=== PATIENT | female | born 1965 | race Caucasian/White ===

== ENCOUNTER 2019-05-23 15:22 | Emergency (ER) | payer MEDICARE, MEDICAID, SELFPAY ==
[2019-05-23 15:35] VITALS: BP 137/82; PULSE 77; RESP 20; TEMP 37.1; O2SAT 96
--- NOTE | 2019-05-23 16:08 | WC.ED.TRAUMA ---
HPI - Trauma General Chief Complaint: Unspecified Stated Complaint: pain in rib cage History of Present Illness HPI narrative: Radha is a 53-year-old who was laying supine playing with her grandchild 6 days ago. She abruptly experienced a explosive burning sharp pain rated 8/10 in the right anterior chest. This resolved after a couple of minutes. Four days ago she developed pain in this same area which has remained constant. It's rated 5/10 at rest but made worse by coughing and walking. Palpation to this sight produces the pain. This pain sometimes radiates around the right side into her back. She is worried this could be her heart. She would lilke to have some pain medication to take when the pain gets intense. Tylenol does not work; cannot take nonsteroidal anti-inflammatories. She denies shortness of breath. She has a chronic cough which has not recently changed Related Data Home Medications Medication Instructions Recorded Confirmed atorvastatin 40 mg tablet 40 mg PO DAILY 05/08/19 05/23/19 gabapentin 300 mg capsule 600 mg PO HS 05/08/19 05/23/19 losartan 50 mg-hydrochlorothiazide 1 tablet PO DAILY 05/08/19 05/23/19 12.5 mg tablet omeprazole 40 mg capsule,delayed 40 mg PO DAILY 05/08/19 05/23/19 release gabapentin 100 mg PO BID 05/23/19 05/23/19 lorazepam 1 mg PO Q8-10H PRN 05/23/19 05/23/19 potassium chloride 40 meq PO BID 05/23/19 05/23/19 warfarin 8 mg PO DAILY 05/23/19 05/23/19 Allergies Allergy/AdvReac Type Severity Reaction Status Date / Time No Known Allergies Allergy Unverified 05/11/19 08:13 Review of Systems Constitutional: Constitutional: Reports no additional constitutional complaints Cardiovascular: Cardiovascular: Denies chest pain, Denies rapid heart rate and Denies radiating jaw, neck or arm pain Respiratory: Respiratory: Reports no additional respiratory complaints Gastrointestinal: Gastrointestinal: Denies abdominal pain, Reports diarrhea and Reports vomiting Musculoskeletal: Musculoskeletal: Reports no additional musculoskeletal complaints Integumentary/Breasts: Skin/Breast: Denies rash Psychiatric: Psychiatric: Reports anxiety PMFSH Past Medical History Medical History (Updated 05/23/19 @ 16:36 by Clayton Barraza MD) Common migraine DELMER (generalized anxiety disorder) GERD without esophagitis Herpes simplex virus (HSV) infection History of pulmonary embolism Hyperlipidemia Hypertension Nicotine dependence Obesity, Class II, BMI 35-39.9 Surgical History Surgical History (Updated 05/08/19 @ 12:30 by Milly Cr NP) History of cholecystectomy History of hysterectomy Family History Family History (Updated 05/02/17 @ 00:00 by CONVUSER A) Mother Family history of type 2 diabetes mellitus Father Hypertension Social History Social History (Updated 05/23/19 @ 19:46 by Clayton Barraza MD) Smoking status: Current every day smoker Gender identity (if verbalized by the patient): Female Exam Const: General: other ( Anxious) Nutritional Appearance: overweight Orientation/consciousness: patient oriented x3 Chest: Other: examination of the right anterior chest reveals no erythema, swelling, rash. She is tender along the right, approximate 6th rib, extending from the right mid clavicular line to the anterior axillary line. Palpation reproduces her pain. No palpable crepitation. Underlying breath sounds are full and clear without rales or rub. Resp: Auscultation: clear to auscultation bilaterally Cardio: Rhythm: regular rhythm Heart sounds: S1 normal heart sound present, S2 normal heart sound present and no murmurs GI: GI Palp: Yes Soft to palpation and No Tenderness to palpation present (GI) Course Course Emergency Course: Pt assured this is not cardiac. No X rays indicated unless pain does not resolve. I explained it should be better in a week and slowly resolve over the next 3 weeks or so. Vital Signs Vital signs: Vital Signs
[2019-05-23 16:23] VITALS: RESP 20
--- NOTE | 2019-05-23 16:33 | ED.UPPEXIN ---
HPI - Extremity Injury (Upper) General Chief Complaint: Unspecified Stated Complaint: pain in rib cage Related Data Home Medications Medication Instructions Recorded Confirmed atorvastatin 40 mg tablet 40 mg PO DAILY 05/08/19 05/23/19 gabapentin 300 mg capsule 600 mg PO HS 05/08/19 05/23/19 losartan 50 mg-hydrochlorothiazide 1 tablet PO DAILY 05/08/19 05/23/19 12.5 mg tablet omeprazole 40 mg capsule,delayed 40 mg PO DAILY 05/08/19 05/23/19 release gabapentin 100 mg PO BID 05/23/19 05/23/19 lorazepam 1 mg PO Q8-10H PRN 05/23/19 05/23/19 potassium chloride 40 meq PO BID 05/23/19 05/23/19 warfarin 8 mg PO DAILY 05/23/19 05/23/19 Allergies Allergy/AdvReac Type Severity Reaction Status Date / Time No Known Allergies Allergy Unverified 05/11/19 08:13 [facility] Past Medical History Medical History (Updated 05/23/19 @ 16:36 by Clayton Barraza MD) Common migraine DELMER (generalized anxiety disorder) GERD without esophagitis Herpes simplex virus (HSV) infection History of pulmonary embolism Hyperlipidemia Hypertension Nicotine dependence Obesity, Class II, BMI 35-39.9 Surgical History Surgical History (Updated 05/08/19 @ 12:30 by Milly Cr NP) History of cholecystectomy History of hysterectomy Family History Family History (Updated 05/02/17 @ 00:00 by CONVUSER A) Mother Family history of type 2 diabetes mellitus Father Hypertension Social History Social History Gender identity (if verbalized by the patient): Female Course Vital Signs Vital signs: Vital Signs Temperature 37.1 C 05/23/19 15:35 Pulse Rate 77 05/23/19 15:35 Respiratory Rate 05/23/19 15:35 Blood Pressure 137/82 05/23/19 15:35 Pulse Oximetry 96 05/23/19 15:35 Temperature 37.1 C 05/23/19 15:35 Pulse Rate 77 05/23/19 15:35 Respiratory Rate 05/23/19 15:35 Blood Pressure 137/82 05/23/19 15:35 Pulse Oximetry 96 05/23/19 15:35 Discharge Plan Discharge Clinical Impression: Overuse injury Patient Disposition: Home, Self-Care Condition: Stable Instructions: Wrist Injury (ED) Additional Instructions: Return if worse. See Frank Mahmood within the next week. Wear wrist splint. Remove to apply ice 4x/day as needed for pain. Avoid lifting or using the left arm. Prescriptions: New hydrocodone-acetaminophen 5-325 mg tablet 1 tablet PO Q6H PRN (Reason: pain) Qty: 10 RF: 0 No Action gabapentin 100 mg Capsule 100 mg PO BID RF: 0 warfarin 4 mg tablet 8 mg PO DAILY RF: 0 lorazepam 1 mg tablet 1 mg PO Q8-10H PRN (Reason: anxiety) RF: 0 potassium chloride 20 mEq tablet extended release 40 meq PO BID RF: 0 omeprazole 40 mg capsule,delayed release(DR/EC) 40 mg PO DAILY RF: 0 gabapentin 300 mg capsule 600 mg PO HS RF: 0 atorvastatin 40 mg tablet 40 mg PO DAILY RF: 0 losartan-hydrochlorothiazide 50-12.5 mg tablet 1 tablet PO DAILY RF: 0 hydroxyzine pamoate 50 mg capsule 50 mg PO TID PRN (Reason: anxiety) Qty: 90 RF: 1 escitalopram oxalate 20 mg tablet 20 mg PO DAILY Qty: 30 RF: 3 ondansetron 4 mg tablet,disintegrating 4 mg PO Q8H PRN (Reason: nausea and vomiting) Qty: 20 RF: 0 Follow-up/Referrals: UNKNOWN,DOCTOR [Primary Care Provider] - Time of Disposition: 16:17 Discharge Date/Time: 05/23/19 16:23
== END 2019-05-23 16:23 | disposition home or self-care (01) ==
PROVIDERS: Emergency Provider Family Medicine
DX: S29.9XXA Unspecified injury of thorax, initial encounter (principal); Z86.711 Personal history of pulmonary embolism; Z79.01 Long term (current) use of anticoagulants; E78.5 Hyperlipidemia, unspecified; I10 Essential (primary) hypertension; F17.200 Nicotine dependence, unspecified, uncomplicated; X58.XXXA Exposure to other specified factors, initial encounter
CPT/HCPCS: 99283

== ENCOUNTER 2019-10-08 13:14 | Outpatient (CLI) | payer MEDICARE, MEDICAID, SELFPAY ==
--- NOTE | ~2019-10-08 | XR_ITS ---
XR thoracic spine 3V 10/08/2019 13:57 Indication: Back pain Procedure: 3 views of the thoracic spine Comparison: 05/16/2017 Findings: Vertebral body heights are maintained. No fracture or traumatic malalignment. No paraspinal soft tissue abnormality. Pedicles intact. Surrounding osseous structures within normal limits. Osteo penia. Impression: 1: No significant abnormality of the thoracic spine. Reviewed, dictated and finalized at location A. Impression: 1: No significant abnormality of the thoracic spine.
--- NOTE | ~2019-10-08 | XR_ITS ---
XR lumbar spine 2-3V 10/08/2019 13:57 Indication: Low back pain Procedure: 3 views lumbar spine Comparison: 05/16/2017 Findings: Vertebral body heights are maintained. No significant disc narrowing. No evidence for spond ylolysis or spondylolisthesis. No acute fracture is identified. Pedicles intact. Sacral foramen are s ymmetric. There are mild facet degenerative changes at L4-5 and L5-S1. Impression: 1: Mild lumbar spondylosis. Reviewed, dictated and finalized at location A. Impression: 1: Mild lumbar spondylosis.
== END 2019-10-08 13:15 | disposition home or self-care (01) ==
LOC: CHSIMG 13:18
PROVIDERS: PCP Nurse Practitioner Family; Visit Provider Nurse Practitioner Family
DX: M54.6 Pain in thoracic spine (principal); M54.5 Low back pain
CPT/HCPCS: 72072; 72100

== ENCOUNTER 2019-11-25 15:15 | Outpatient (CLI) | payer MEDICARE, SELFPAY ==
[2019-11-25 16:04] LABS: INR 1.9
[2019-11-25 16:21] LABS: Creatinine Urine 143.58 mg/dL (40-278); Hemoglobin A1C 6.1 % (<5.7); MALB Creatinine Ratio 5.2 mg/g (0-30); Microalbumin Urine Random 7.5 mg/L
[2019-11-25 17:02] LABS: Alanine Aminotransferase 24 U/L (14-59); Albumin Level 3.6 g/dL (3.4-5.0); Alkaline Phosphatase 118 U/L (46-116); Anion Gap 10 mmol/L (8-16); Aspartate Amino Transferase 20 U/L (15-37); Bilirubin,Total 0.3 mg/dL (0.00-1.00); Blood Urea Nitrogen 12 mg/dL (7-18); Calcium 9.2 mg/dL (8.5-10.1); Carbon Dioxide 30 mmol/L (21-32); Chloride 102 mmol/L (98-108); Cholesterol 133 mg/dL (0-200); Estimated Glomerular Filt Rate > 60; Folic Acid 4.8 ng/mL (8.6->20); Glucose 100 mg/dL (70-99); HDL Direct 46 mg/dL (40-60); LDL Cholesterol Calculated 55 mg/dL (<130); Osmolality Calculated 293 mOsm/kg (285-295); Potassium 3.4 mmol/L (3.5-5.1); Sodium 142 mmol/L (136-145); Total Protein 7.6 g/dL (6.4-8.2); Triglycerides 158 mg/dL (0-150); Vitamin B12 370 pg/mL (193-986)
[2019-11-25 17:05] LABS: Thyroid Stimulating Hormone Reflex 1.19 u/IU/mL (0.36-3.74)
== END 2019-11-25 15:16 | disposition home or self-care (01) ==
PROVIDERS: PCP Family Medicine; Visit Provider Family Medicine
DX: E11.9 Type 2 diabetes mellitus without complications (principal); I10 Essential (primary) hypertension; Z79.01 Long term (current) use of anticoagulants
CPT/HCPCS: 36415; 80053; 80061; 82043; 82607; 82746; 83036; 84443; 85610

== ENCOUNTER 2020-08-24 15:05 | Outpatient (CLI) | payer MEDICARE, SELFPAY ==
[2020-08-24 15:28] LABS: Hemoglobin A1C 5.9 % (<5.7)
[2020-08-24 16:01] LABS: Alanine Aminotransferase 26 U/L (14-59); Albumin Level 3.6 g/dL (3.4-5.0); Alkaline Phosphatase 128 U/L (46-116); Anion Gap 11 mmol/L (8-16); Aspartate Amino Transferase 17 U/L (15-37); Bilirubin,Total 0.3 mg/dL (0.00-1.00); Blood Urea Nitrogen 15 mg/dL (7-18); Calcium 9.1 mg/dL (8.5-10.1); Carbon Dioxide 27 mmol/L (21-32); Chloride 102 mmol/L (98-108); Estimated Glomerular Filt Rate > 60; Glucose 87 mg/dL (70-99); Osmolality Calculated 289 mOsm/kg (285-295); Potassium 3.8 mmol/L (3.5-5.1); Sodium 140 mmol/L (136-145); Total Protein 7.2 g/dL (6.4-8.2)
== END 2020-08-24 15:06 | disposition home or self-care (01) ==
LOC: CHSLAB 15:07
PROVIDERS: PCP Nurse Practitioner Family; Visit Provider Nurse Practitioner Family
DX: R73.03 Prediabetes (principal)
CPT/HCPCS: 36415; 80053; 83036

== ENCOUNTER 2021-04-25 16:22 | Outpatient (CLI) | payer OTHER, SELFPAY ==
--- NOTE | ~2021-04-25 | XR_ITS ---
XR knee LT 3V DATE: 04/25/2021 16:58 INDICATION: Aching/throbbing pain of left knee for 2 months TECHNIQUE: AP, lateral, sunrise views COMPARISON: None FINDINGS: There is slight periarticular spurring of the patella. There is minimal loss of medial comp artment joint space height. No fracture or dislocation or joint effusion, radiopaque intra-articular loose body or chondrocalcino sis. No periosteal reaction or bone destruction. IMPRESSION: Minimal loss of medial prominent joint space height and slight peritoneal spurring, consi stent with mild osteoarthritis Reviewed, dictated and finalized at location A. [employer] IMPRESSION: Minimal loss of medial prominent joint space height and slight loretta toneal spurring, consistent with mild osteoarthritis
--- NOTE | ~2021-04-25 | XR_ITS ---
XR knee RT 3V DATE: 04/25/2021 16:57 INDICATION: Medial right knee pain for 3 months. Limited movement. No injury. TECHNIQUE: AP, lateral, sunrise views COMPARISON: None FINDINGS: No fracture or dislocation or joint effusion. Minimal loss of height at the medial compartm ent joint space. Joint spaces otherwise are well preserved. No chondrocalcinosis or radiopaque intra- articular loose body. No periosteal reaction or bone destruction. IMPRESSION: Minimal loss of height of medial compartment joint space Reviewed, dictated and finalized at location A. 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
== END 2021-04-25 16:23 | disposition home or self-care (01) ==
LOC: CHSIMG 16:26
PROVIDERS: PCP Family Medicine; Visit Provider Family Medicine
DX: M25.562 Pain in left knee (principal); M25.561 Pain in right knee
CPT/HCPCS: 73562

== ENCOUNTER 2021-06-07 15:51 | Outpatient (NON) | payer MEDICARE, SELFPAY | END 2021-06-07 15:52 | disposition home or self-care (01) | LOC: CHSLAB 15:53 | PROVIDERS: Visit Provider Nurse Practitioner Family | DX: R30.0 Dysuria (principal) | CPT/HCPCS: 87077; 87086; 87088; 87186 ==

== ENCOUNTER 2021-12-07 14:34 | Outpatient (CLI) | payer MEDICARE, SELFPAY ==
[2021-12-07 14:48] LABS: Hematocrit 42.8 % (35.0-49.0); Hemoglobin 14.3 g/dL (12.0-15.0); Mean Corpuscular HGB Conc 33.4 g/dL (32.0-36.0); Mean Corpuscular Hemoglobin 30.8 pg (27.0-31.0); Mean Corpuscular Volume 92.2 fL (78.0-102.0); Platelet Count Result 268 K/mm3 (150-420); Red Blood Count 4.64 M/mm3 (4.20-5.40); Red Cell Distribution Width 13.7 % (11.6-14.4); White Blood Count 9.8 K/mm3 (4.8-10.8)
[2021-12-07 15:14] LABS: Alanine Aminotransferase 32 U/L (14-59); Albumin Level 3.6 g/dL (3.4-5.0); Alkaline Phosphatase 99 U/L (46-116); Anion Gap 10 mmol/L (8-16); Aspartate Amino Transferase 26 U/L (15-37); Bilirubin,Total 0.4 mg/dL (0.00-1.00); Blood Urea Nitrogen 10 mg/dL (7-18); Calcium 9.2 mg/dL (8.5-10.1); Carbon Dioxide 29 mmol/L (21-32); Chloride 100 mmol/L (98-108); Estimated Glomerular Filt Rate > 60; Glucose 105 mg/dL (70-99); Osmolality Calculated 287 mOsm/kg (285-295); Potassium 3.4 mmol/L (3.5-5.1); Sodium 139 mmol/L (136-145); Total Protein 7.5 g/dL (6.4-8.2)
== END 2021-12-07 14:35 | disposition home or self-care (01) ==
LOC: CHSLAB 14:36
PROVIDERS: PCP Family Medicine; Visit Provider Family Medicine
DX: Z01.818 Encounter for other preprocedural examination (principal)
CPT/HCPCS: 36415; 80053; 85027

== ENCOUNTER 2021-12-11 02:34 | Day surgery (SDC) | payer MEDICARE, MEDICAID, SELFPAY ==
[2021-12-06 13:37] VITALS: BMI 34.7
--- NOTE | 2021-12-11 10:50 | WPDANESEPPF ---
Anes - Initial Pre Proc Eval Procedure: Operation Date: 12/11/21 12:30 Proposed Procedures p Esophagogastroduodenoscopy & Colonoscopy - Damian Lynn MD Date/Time: 12/11/21 10:50 Surgeon: Damian Lynn MD Pre Op Diagnosis: diarrhea, gastritis Patient Data Age: 56 Gender: F Height: 1.75 m Weight: 106.5 kg Allergies Allergy/AdvReac Type Severity Reaction Status Date / Time No Known Allergies Allergy Verified 12/11/21 11:13 Home Medications Medication Instructions Recorded Confirmed Type lorazepam 1 mg tablet 1 mg PO Q8-10H PRN anxiety 05/23/19 12/06/21 History hydroxyzine pamoate 50 mg capsule 50 mg PO TID PRN anxiety #90 caps 07/02/19 12/06/21 Rx ondansetron HCl 4 mg tablet 4 mg PO Q8H PRN nausea and 09/03/19 12/06/21 Rx (Zofran) vomiting #90 tabs gabapentin 600 mg tablet See Rx Instructions .Route 09/05/20 12/06/21 Rx .COMPLEX #360 tabs cholestyramine-aspartame 4 gram 4 g PO DAILY #60 ea 03/21/21 12/06/21 Rx oral powder for susp in a packet (Cholestyramine Light) tizanidine 2 mg tablet See Rx Instructions .Route 05/01/21 12/06/21 Rx .COMPLEX #20 tabs omeprazole 40 mg capsule,delayed See Rx Instructions .Route 05/22/21 12/06/21 Rx release .COMPLEX #90 caps atorvastatin 40 mg tablet See Rx Instructions .Route 06/20/21 12/06/21 Rx .COMPLEX #90 tabs olanzapine 5 mg tablet 5 mg PO DAILY 07/17/21 12/06/21 History warfarin 7.5 mg tablet 7.5 mg PO DAILY #30 tabs 08/31/21 12/06/21 Rx losartan 50 mg-hydrochlorothiazide 1 tablet PO DAILY #90 tabs 09/08/21 12/06/21 Rx 12.5 mg tablet potassium chloride 20 mEq See Rx Instructions .Route 10/11/21 12/06/21 Rx tablet,extended release .COMPLEX #360 tabs sucralfate 1 gram tablet 1 g PO TID #270 tabs 10/26/21 12/06/21 Rx Equate Gas And Bloating 2 tab-cap PO QACDINNER PRN Diarrhea 12/06/21 12/06/21 History Lactase Enzyme 6 tab-cap PO QACDINNER PRN Diarrhea 12/06/21 12/06/21 History Tylenol 1,000 mg PO BID 12/06/21 12/06/21 History calcium citrate 600 mg PO BID 12/06/21 12/06/21 History melatonin 10 mg tablet 10 mg PO HS PRN Insomnia 12/06/21 12/06/21 History simethicone 125 mg capsule (Gas 250 mg PO QID 12/06/21 12/06/21 History Relief (simethicone)) trazodone 50 mg tablet 100 mg PO HS 12/06/21 12/06/21 History warfarin 1 mg tablet 1 mg PO HS 12/06/21 12/06/21 History enoxaparin 40 mg/0.4 mL 40 mg (0.4 mL) subcut Q24H #4 mL 12/07/21 12/11/21 Rx subcutaneous syringe (Lovenox) warfarin 4 mg tablet 8 mg PO DAILY #60 tabs 12/11/21 12/11/21 Rx Patient hx anesthesia problems: none Family hx anesthesia problems: none Results Review: All pre-operative results and documents have been reviewed as part of the pre-operative evaluation. [facility] Past Medical History Medical History Bloating Encounter for screening mammogram for malignant neoplasm of breast DELMER (generalized anxiety disorder) Gastritis GERD without esophagitis Herpes simplex virus (HSV) infection History of pulmonary embolism Hyperlipidemia Hypertension Irritable bowel syndrome with diarrhea Marijuana smoker Myofascial pain syndrome Nausea & vomiting Neuropathy Nicotine dependence Obesity, Class II, BMI 35-39.9 Prediabetes Surgical History Surgical History History of cholecystectomy History of hysterectomy Family History Family History Mother Family history of type 2 diabetes mellitus Father Hypertension Social History Social History Smoking packs per day: 1 Smoking cigarettes per day: 20.0 Years smoked: 40 Smoking pack-years: 40.00 Smoking status: Current every day smoker Tobacco type: cigarettes Alcohol intake: current Substance use: current Substance use type: marijuana Other substance usage details: DAILY
[2021-12-11 11:17] VITALS: BP 133/83; PULSE 94; RESP 20; TEMP 36.4; O2SAT 99
[2021-12-11] MEDS: LACTATED RINGERS 1,000 ML 150 ML IV CONT (11:25)
--- NOTE | 2021-12-11 11:40 | PM.HPGS ---
History of Present Illness History of Present Illness Consent: Risks, benefits, and alternatives have been discussed and questions answered. Patient agrees to proceed with procedure. Chief complaint: diarrhea, gastritis Narrative: Radha Brooke is a 56 year old female with ibs-d and gerd (using carafate and omeprazole)- last egd with gastritis. She did not like questran Review of Systems Constitutional: Constitutional: Denies headache(s) and Denies weakness Eyes: Eyes: Denies blurry vision ENT: Reports Normal hearing present, Denies headache(s) and Denies neck pain Cardiovascular: Cardiovascular: Denies chest pain and Denies dyspnea Respiratory: Respiratory: Denies dyspnea Gastrointestinal: Gastrointestinal: Reports no additional gastrointestinal complaints Genitourinary: Genitourinary: Denies dysuria Musculoskeletal: Musculoskeletal: Denies neck pain Integumentary/Breasts: Skin/Breast: Denies dry skin Neurologic: Reports Normal hearing present, Denies headache(s) and Denies weakness Psychiatric: Psychiatric: Denies anxiety Endocrine: Endocrine: Denies change in body appearance Hematologic/Lymphatic: Hematologic/Lymphatic: Denies easy bleeding Allergic/Immunologic: Allergic/Immunologic: Denies urticaria PMFSH Past Medical History Medical History Bloating Encounter for screening mammogram for malignant neoplasm of breast DELMER (generalized anxiety disorder) Gastritis GERD without esophagitis Herpes simplex virus (HSV) infection History of pulmonary embolism Hyperlipidemia Hypertension Irritable bowel syndrome with diarrhea Marijuana smoker Myofascial pain syndrome Nausea & vomiting Neuropathy Nicotine dependence Obesity, Class II, BMI 35-39.9 Prediabetes Surgical History Surgical History History of cholecystectomy History of hysterectomy Family History Family History Mother Family history of type 2 diabetes mellitus Father Hypertension Social History Social History Smoking packs per day: 1 Smoking cigarettes per day: 20.0 Years smoked: 40 Smoking pack-years: 40.00 Smoking status: Current every day smoker Tobacco type: cigarettes Alcohol intake: current Substance use: current Substance use type: marijuana Other substance usage details: DAILY Living arrangements: with family Gender identity (if verbalized by the patient): Female Spiritual care concerns: No Meds Home Medications and Allergies Home Medications Medication Instructions Recorded Confirmed Type lorazepam 1 mg tablet 1 mg PO Q8-10H PRN anxiety 05/23/19 12/06/21 History hydroxyzine pamoate 50 mg capsule 50 mg PO TID PRN anxiety #90 caps 07/02/19 12/06/21 Rx ondansetron HCl 4 mg tablet 4 mg PO Q8H PRN nausea and 09/03/19 12/06/21 Rx (Zofran) vomiting #90 tabs gabapentin 600 mg tablet See Rx Instructions .Route 09/05/20 12/06/21 Rx .COMPLEX #360 tabs cholestyramine-aspartame 4 gram 4 g PO DAILY #60 ea 03/21/21 12/06/21 Rx oral powder for susp in a packet (Cholestyramine Light) tizanidine 2 mg tablet See Rx Instructions .Route 05/01/21 12/06/21 Rx .COMPLEX #20 tabs omeprazole 40 mg capsule,delayed See Rx Instructions .Route 05/22/21 12/06/21 Rx release .COMPLEX #90 caps atorvastatin 40 mg tablet See Rx Instructions .Route 06/20/21 12/06/21 Rx .COMPLEX #90 tabs olanzapine 5 mg tablet 5 mg PO DAILY 07/17/21 12/06/21 History warfarin 7.5 mg tablet 7.5 mg PO DAILY #30 tabs 08/31/21 12/06/21 Rx losartan 50 mg-hydrochlorothiazide 1 tablet PO DAILY #90 tabs 09/08/21 12/06/21 Rx 12.5 mg tablet potassium chloride 20 mEq See Rx Instructions .Route 10/11/21 12/06/21 Rx tablet,extended release .COMPLEX #360 tabs sucralfate 1 gram tablet 1 g PO TID #270 tabs 10/26/21
--- NOTE | 2021-12-11 11:58 | SUR.OPER ---
EGD: [id number] COLON: [id number]
[2021-12-11 12:11] VITALS: BP 111/71; PULSE 76; RESP 19; O2SAT 96
[2021-12-11 12:21] VITALS: BP 114/72; PULSE 78; RESP 19; O2SAT 97
[2021-12-11 12:31] VITALS: BP 122/76; PULSE 75; RESP 18; O2SAT 98
== END 2021-12-11 12:45 | disposition home or self-care (01) ==
PROVIDERS: PCP Family Medicine; Visit Provider Internal Medicine Gastroenterology
PROC: 0DJ08ZZ Inspection of Upper Intestinal Tract, Via Natural or Artificial Opening Endoscopic (ICD-10-PCS; CPT 43235; principal; 2021-12-11 12:30)
DX: Z12.11 Encounter for screening for malignant neoplasm of colon (principal); K58.9 Irritable bowel syndrome, unspecified; K63.5 Polyp of colon; K64.8 Other hemorrhoids; K21.9 Gastro-esophageal reflux disease without esophagitis; K29.70 Gastritis, unspecified, without bleeding; I10 Essential (primary) hypertension; E78.5 Hyperlipidemia, unspecified; R73.03 Prediabetes; G62.9 Polyneuropathy, unspecified; F41.1 Generalized anxiety disorder; B00.9 Herpesviral infection, unspecified; E66.9 Obesity, unspecified; Z68.37 Body mass index [BMI] 37.0-37.9, adult; F17.210 Nicotine dependence, cigarettes, uncomplicated; F12.90 Cannabis use, unspecified, uncomplicated; Z79.01 Long term (current) use of anticoagulants; Z86.711 Personal history of pulmonary embolism
CPT/HCPCS: 45385; 45380; 43239; 88305; J2704; J7120

== ENCOUNTER 2022-01-30 13:38 | Outpatient (CLI) | payer MEDICARE, SELFPAY ==
[2022-01-30 13:54] LABS: Bilirubin Urine Negative (Negative); Blood Urine 2+ (Negative); Glucose Urine UA Trace (Negative); Ketones Urine Negative (Negative); Leukocyte Esterase Ur 3+ LEU/UL (Negative); Nitrate Urine Positive (Negative); Protein Urine 2+ (Negative)
[2022-01-30 14:02] LABS: Add Urine Microscopic? YES; Appearance Urine Slightly Cloudy (Clear); Color Urine Dark Orange (Yellow)
[2022-01-30 14:03] LABS: Bacteria Urine 2+ /hpf; Squamous Epithelial Cell Urine Few /hpf (Few); WBC Urine 21-30 /hpf (0-3)
== END 2022-01-30 13:39 | disposition home or self-care (01) ==
LOC: CHSLAB 13:41
PROVIDERS: PCP Family Medicine; Visit Provider Family Medicine
DX: R30.0 Dysuria (principal)
CPT/HCPCS: 81001; 87077; 87086; 87088; 87186

== ENCOUNTER 2023-01-30 14:19 | Outpatient (CLI) | payer MEDICARE, SELFPAY ==
[2023-01-30 15:02] LABS: Basophils Absolute Auto 0.06 K/mm3 (0.00-0.10); Basophils Percent Auto 0.7 % (0.0-1.0); Eosinophils Percent Auto 1.2 % (1.0-6.0); Hematocrit 43.7 % (35.0-49.0); Hemoglobin 14.5 g/dL (12.0-15.0); Immature Granulocyte Absolute 0.02 K/mm3 (0.00-0.00); Immature Granulocyte Percent A 0.2 % (0.0-0.0); Lymphocytes Absolute Auto 4.01 K/mm3 (1.10-4.50); Mean Corpuscular HGB Conc 33.2 g/dL (32.0-36.0); Mean Corpuscular Hemoglobin 30.1 pg (27.0-31.0); Mean Corpuscular Volume 90.7 fL (78.0-102.0); Mean Platelet Volume 9.3 fl (9.2-11.8); Monocytes Absolute Auto 0.45 K/mm3 (0.10-0.90); Monocytes Percent Auto 5.4 % (2.0-11.0); Neutrophils Absolute Auto 3.7 K/mm3 (1.7-7.2); Neutrophils Percent Auto 44.5 % (50.0-70.0); Platelet Count Result 299 K/mm3 (150-420); Red Blood Count 4.82 M/mm3 (4.20-5.40); Red Cell Distribution Width 13.2 % (11.6-14.4); White Blood Count 8.4 K/mm3 (4.8-10.8)
[2023-01-30 15:22] LABS: Alanine Aminotransferase 34 U/L (14-59); Albumin Level 3.4 g/dL (3.4-5.0); Alkaline Phosphatase 104 U/L (46-116); Anion Gap 12 mmol/L (8-16); Aspartate Amino Transferase 21 U/L (15-37); Bilirubin,Total 0.3 mg/dL (0.00-1.00); Blood Urea Nitrogen 7 mg/dL (7-18); Calcium 9.5 mg/dL (8.5-10.1); Carbon Dioxide 27 mmol/L (21-32); Chloride 101 mmol/L (98-108); Cholesterol 151 mg/dL (0-200); Estimated Glomerular Filt Rate > 60; Glucose 99 mg/dL (70-99); HDL Direct 52 mg/dL (40-60); LDL Cholesterol Calculated 65 mg/dL (<130); Osmolality Calculated 288 mOsm/kg (285-295); Sodium 140 mmol/L (136-145); Triglycerides 168 mg/dL (0-150)
== END 2023-01-30 14:20 | disposition home or self-care (01) ==
LOC: CHSLAB 14:21
PROVIDERS: PCP Family Medicine; Visit Provider Family Medicine
DX: J44.9 Chronic obstructive pulmonary disease, unspecified (principal); E11.9 Type 2 diabetes mellitus without complications; E66.9 Obesity, unspecified
CPT/HCPCS: 36415; 80053; 80061; 83036; 85025

== ENCOUNTER 2023-03-14 15:10 | Outpatient (CLI) | payer MEDICARE, SELFPAY ==
[2023-03-14 15:39] LABS: Hemoglobin A1C 5.9 % (<5.7)
[2023-03-14 15:43] LABS: INR 2.9; Prothrombin Time 29.3 Seconds (9.50-12.10)
[2023-03-14 16:02] LABS: Cholesterol 169 mg/dL (0-200); HDL Direct 56 mg/dL (40-60); LDL Cholesterol Calculated 76 mg/dL (<130); Triglycerides 183 mg/dL (0-150)
== END 2023-03-14 15:11 | disposition home or self-care (01) ==
LOC: CHSLAB 15:13
PROVIDERS: PCP Family Medicine; Visit Provider Family Medicine
DX: R10.9 Unspecified abdominal pain (principal); I10 Essential (primary) hypertension; E11.9 Type 2 diabetes mellitus without complications
CPT/HCPCS: 36415; 80061; 83036; 85610

== ENCOUNTER 2024-10-05 14:51 | Emergency (ER) | payer MEDICARE, MEDICAID, SELFPAY ==
[2024-10-05] VITALS (16 sets, daily range): BP systolic 108–144; BP diastolic 55–78; PULSE 73–83; RESP 12–21; TEMP 35.7–36.5; O2SAT 92–96
--- NOTE | ~2024-10-05 | XR_ITS ---
EXAMINATION: XR chest 1V portable Exam Date/Time: 10/05/2024 15:50 CDT HISTORY: cough and congestion Comparison: 05/30/2017. RESULT: Lines, tubes, and devices: None. Lungs and pleura: No focal consolidation, pleural effusion, or pneumothorax. Minimal bibasilar scar/ atelectasis. Cardiomediastinal silhouette: Stable. Other: No acute osseous or upper abdominal finding. IMPRESSION: No acute cardiopulmonary process. Reviewed, dictated and finalized at location K.
--- OUTSIDE RECORDS SUMMARY | 2024-10-05 14:54 | XMS_ITS | Data Portability ---
Author Organization 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 She would like breast conservation. She is aware that clinical trials exist and that she may be a candidate for them over the course of her treatment. She is not a candidate for genetic testing. SHe is not in need of reconstruction. No indication for metastatic workup at this time, however she has had a PET scan scheduled for her by another physician, which we discussed that she could do or not depending on her preference Barriers to care per navigator TB Summary note No fertility or sexual health concerns at this time. Her lumpectomy will be US guided. She sees Dr. Vu on the She is on warfarin for h/o PE,most recent 2010-clotting workup at [facility] - per her report tumor board preop-labs and imaging per protocol plan left breast US guided BCT/SLN/Pecs block obtain bleeding workup from [facility] and recommendation recommendation for perioperative management for anticoagulation from Dr. 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 Lab None record ed. Referral None record ed. Procedures None record ed. Surgeries None record ed. Imaging None record ed. Medication Orders None record ed. Patient TargetsNo targets recorded. Patient InstructionsNo instructions recorded. Reason for Referral None Reported. Results Created Date Observation Date Name Description Value Unit Range Abnormal Flag Note LastModifiedBy Organization Detail LastModifiedTime 01/21/20 24 01/21/2024 SURGI SHAKEEL PATHO LOGY spf Perfo rmed at: [facility] Order ing Provi jonny: Ashcr aft, Racha el Patie nt Name: VENU SETHIJOHNY Pierre daryl #: [id number] /A ge/Ge nder: [id number] (Age: 58) / F Proce dure Date: 01/20 SP ECIME N(S) RECEI RAMANDEEP * A:Lym ph node, senti melissa #1, excis ion B:Orin ast, left, lumpe ctomy C:Orin ast, left new crani al misty n, excis ion D:Orin ast, left new media l misty n, excis ion E:Orin ast, left new later al misty n, excis ion F:Orin ast, left new cauda l misty n, excis ion G:Orin ast, left new deep misty n, excis ion H:Orin ast, left new anter ior misty n, excis ion FI NAL PATHO LOGIC DIAGN OSIS* A. Lymph node, senti melissa #1, excis ion: - 1 benig n lymph node (0/1) , see comme nt B. Breas t, left, lumpe ctomy : - Invas emanuel ducta l carci noma, measu ring 7 mm in great est linea r exten t, both are Notti ngham grade 1 of 3 - Ducta l carci noma in-si tu, inter media te nucle ar grade , cribr iform and solid types - Previ ous biops y site dennis es prese nt - No lymph ovasc ular invas ion ident ified - All surgi shakeel misty ns are negat emanuel for robin stallworth - See comme nt and synop tic repor t C. Breas t, left new crani al misty n, excis ion: - Benig n breas t tissu e - New left crani al misty n negat emanuel for robin stallworth D. Breas t, left new media l misty n, excis ion: - Benig n breas t tissu e - New left media l misty n negat emanuel for robin Cortez. Breas t, left new later al misty n, excis ion: - Benig n breas t tissu e - New left later al misty n negat emanuel for robin Hurst. Breas t, left new cauda l misty n, excis ion: - Benig n breas t tissu e with focal usual ducta l hyper plasi a and micro calci ficat ions - New left cauda l misty n negat emanuel for robin stallworth G. Breas t, left new deep misty n, excis ion: - Benig n breas t tissu e - New left deep misty n negat emanuel for robin stallworth H. Breas t, left new anter ior misty n, excis ion: - Benig n breas t tissu e - New left anter ior misty n negat emanuel for robni stallworth SY NOPTI C REPOR T B. Breas t, left, lumpe ctomy : SPECI MEN Proce dure: Excis ion (less than total maste ctomy ) Speci men Later ality : Left TUMOR Histo logic Type: Invas emanuel carci noma of no speci al type (duct al) Histo logic Grade (Nott ingbarry m Histo logic Score ): Gland ular (Acin ar) / Tubul ar Diffe renti ation :Scor e 1 Nucle ar Pleom orphi sm: Score 2 Mitot ic Rate: Score 1 Overa ll Grade : Grade 1 (scor es of 3, 4 or 5) Tumor Size: Great est dimen daryl of large st invas emanuel focus (Mill imete rs): 7 mm Tumor Focal ity: Singl e focus of invas emanuel carci noma Ducta l Carci noma In Situ (DCIS ): Prese nt Size (Exte nt) of DCIS: Estim ated size (exte nt) of DCIS is at least (Mill imete rs): 11 mm Archi tectu ral Patte rns: Cribr iform Solid Nucle ar Grade : Grade II (inte rmedi ate) Necro sis: Not ident ified Lymph atic and / or Vascu lar Invas ion: Not ident ified Micro calci ficat ions: Prese nt in DCIS Prese nt in non-n eopla stic tissu e Treat ment Effec t in the Breas t: No known presu rgica l thera py MISTY NS Misty n Statu s for Invas emanuel Carci noma: All misty ns negat emanuel for invas emanuel carci noma Dista nce from Invas emanuel Carci noma to Close st Misty n: [address] Misty n(s) to Invas emanuel Carci noma: Anter ior Dista nce from Invas emanuel Carci noma to Anter ior Misty n: 10 mm Dista nce from Invas emanuel Carci noma to Poste rior Misty n: 13 mm Dista nce from Invas emanuel Carci noma to Super ior Misty n: 11 mm Dista nce from Invas emanuel Carci noma to Infer ior Misty n: 13 mm Dista nce from Invas emanuel Carci noma to Media l Misty n: 14 mm Dista nce from Invas emanuel Carci noma to Later al Misty n: Great er than: 20 mm Misty n Statu s for DCIS: All misty ns negat emanuel for DCIS Dista nce from DCIS to Close st Misty n: [address] Misty n(s) to DCIS: Anter ior Dista nce from DCIS to Anter ior Misty n: 9 mm Dista nce from DCIS to Poste rior Misty n: 13 mm Dista nce from DCIS to Super ior Misty n: 11 mm Dista nce from DCIS to Infer ior Misty n: 11 mm Dista nce from DCIS to Media l Misty n: 8 mm Dista nce from DCIS to Later al Misty n: Great er than: 20 mm REGIO NAL LYMPH NODES Regio nal Lymph Node Statu s: All regio nal lymph nodes negat emanuel for tumor Total Numbe r of Lymph Nodes Exami mj (sent inel and non-s entin el): 1 Numbe r of Senti melissa Nodes Exami mj: 1 pTNM CLASS IFICA TION (AJCC 8th Editi on) pT Categ ory: pT1b pN Categ ory: pN0 N Suffi x: (sn) Breas t Bioma rker Testi ng Perfo rmed on Previ ous Biops y: Estro gen Expansion Joint Finisher tor (ER) Statu s: Posit emanuel (grea ter than 10% of cells demon strat e nucle ar posit ivity ) Perce ntage of Cells with Nucle ar Posit ivity :91-1 00% Proge stero ne Expansion Joint Finisher tor (PgR) Statu s: Posit emanuel Perce ntage of Cells with Nucle ar Posit ivity :41-5 0% HER2 (by immun ohist ochem istry ): Negat emanuel (Scor e 1+) Ki-67 Perce ntage of Posit emanuel Nucle i: 10 % Testi ng Perfo rmed on Case Numbe r: block B7 ----- ----- ----- ----- ----- ----- ----- ----- ----- ----- ----- - CO MMENT S In order to suri cteri ze the cells of inter est, immun ohist ochem ical stain s for panke ratin (AE1/ 3) are perfo rmed on block s A1 and A2, and are negat emanuel. Immun ohist ochem ical stain s for myoep ithel ial cells are perfo rmed on block B11 (p63 and calpo bowen) showi ng at least parti al prese rvati on of myoep ithel ial cells in the area of inter est, suppo rting the above diang osis. Immun ohist ochem ical stain s perfo rmed on block B7 for ER, NV, HER2/ Sophie, Ki-67 resul ts: Estro gen nurse receptionist tor Posit emanuel (>95% nucle i stain ing) Stain ing inten sity Stron g Proge stero ne nurse receptionist tor Posit emanuel (40% nucle i stain ing) Stain ing inten sity Moder ate Her-2 /sophie overe xpres daryl Negat emanuel (1+) by immun ohist ochem istry Ki-67 proli ferat ion index is 10% Estro gen and proge stero ne nurse receptionist tor assay s were perfo rmed by immun ohist ochem istry utili zing forma angie-f ixed paraf fin-e mbedd ed tissu e, Venta na ER clone [id number], Venta na NV clone [id number], and ultra view DAB detec tion kit. The resul ts are based on semi- quant itati ve inter preta tion by visua l asses sment (% nucle i stain ing) using the follo wing range s: Negat emanuel - Less than 1% nucle i stain ing Posit emanuel - Great er than or equal to 1% nucle i stain ing Stain ing inten sity is inter prete d as weak, moder ate or stron g Her-2 immun ohist ochem istry (IHC) was perfo rmed on paraf fin-e mbedd ed, forma angie-f ixed tissu e. The slide s were stain ed with PATHW AY (clon e 4B5) [facility] and inter prete d at [facility]. The scori ng was perfo rmed using the ASCO/ CAP appro ramandeep crite vianney. The refer ence range is: Negat emanuel (0-1+ ), equiv ocal (2+) and posit emanuel (3+). IHC 0 is defin ed by no stain ing obser ramandeep or membr ane stain ing that is incom plete and is faint /bare ly perce ptibl e and withi n =10% of the invas emanuel tumor cells . IHC 1+ is defin ed by incom plete membr ane stain ing that is faint /bare ly perce ptibl e and withi n >10% of the invas emanuel tumor cells . IHC 2+ is defin ed as circu mfere ntial membr ane stain ing that is incom plete and/o r weak/ moder ate and withi n >10% of the invas emanuel tumor cells ; or compl ete and circu mfere ntial membr ane stain ing that is inten se and withi n =10% of the invas emanuel tumor cells . IHC 3+ is defin ed as circu mfere ntial membr ane stain ing that is compl ete, inten se in >10% of invas emanuel tumor cells . Baljinder PAN, et al. Recom menda tions for human epide rmal growt h facto r nurse receptionist tor 2 testi ng in breas t cance r: Pee read Socie ty of Clini shakeel Oncol ogy/C olpamg e of Ameri can Patho logis ts clini shakeel pract ice guide line updat e. J Clin Oncol . 2013; 31(31 ):399 7-401 3. Total forma angie fixat ion time: appro x 30 hrs. EL ECTRO NICAL LY VERIF IED BY DANIELA Syed MD 01/23 15:23 Adden dum Date Order ed: 2024 Date Repor yareli: 2024 AD DENDU M DIAGN OSIS* Oncot ype DX Breas t Recur rence Score Repor t Node Negat emanuel (bloc k B7): Recur rence Score Resul t (RS) = 6 Dista nt Recur rence Risk at 9 years = 3% [facility] [place] Chemo thera py Benef it = <1% Quant itati ve singl e gene score s: ER score = 11.8 (posi tive) , NV score = 7.1 (posi tive) and HER2 score = 10.1 (nega tive) Comme nt: The Oncot ype DX Breas t Recur rence Score test uses RT-PC R to deter mine the expre ssion of a panel of 21 genes in tumor tissu e. The Recur rence Score Resul t (RS) is calcu lated from the gene expre ssion resul ts and range s from 0-100 . The Dista nt Recur rence Risk at 9 years (Prog nosis ), in patie nts with N-, ER+ breas t cance r treat ed with endoc rine thera py alone , is provi ded by the TAILO Rx trial for RS 0-25 and by the NSABP B-14 trial for RS 26-10 0. The [facility] [place] Benef it of Chemo thera py for all ages is provi ded by the TAILO Rx trial for RS11- 25 and by the NSABP B-20 trial for RS 0-10 and RS 26-10 0. The test is perfo rmed by [employer] [employer] in [place], [place]. A copy of their repor t will be kept on file in the [facility] t[facility] of [facility] atory Medic ine and Patho logy. A reque st for this test was recei ramandeep for this patie nt. The case repor t, slide s(s), and block (s) for the cited acces daryl were retri eved from [facility]. The patho logis t whose signa ture appea rs below revie wed this case and nicolas downs the appro priat e block for the speci ficat ions of the order ed test. EL ECTRO NICAL LY VERIF IED BY DANIELA Syed MD [facility] Malig nant neopl asm of overl appin g sites of left breas t in femal e, estro gen nurse receptionist tor posit emanuel-l eft GR OSS DESCR IPTIO N The speci men conta iner( s) and requi sitio n have the same patie nt name. Recei ramandeep in forma angie label ed A, left senti melissa node #1, 1209, backg round seven is a 2.0 x 1.3 x 0.7 cm lymph node rita date with attac hed fat. The seria lly secti oned lymph node rita date is submi tted entir maranda in A1-A2 . Recei ramandeep in forma angie label ed B, left breas t lumpe ctomy is a 17.0 g left lumpe ctomy speci men with sutur es and white metal tags desig natin g the media l and cauda l/inf erior misty ns. The speci men measu res 5.0 cm from media l to later al, 4.2 cm from super ior to infer ior, and 3.0 cm from anter ior to poste rior. The speci men is inked as follo ws: Anter ior-b lue, poste rior- black , super ior-r ed, infer ior-g reen, media l-yel low, later al-or gila. The speci men is seria lly secti oned from media l to later al to revea l a 0.7 x 0.4 x 0.3 cm pale cline-w carlos, parti ally hemor rhagi c well- circu mscri bed lesio n is 0.5 cm from the neare st blue inked anter ior misty n, 0.6 cm from the neare st black inked poste rior misty n, 0.8 cm from the neare st red inked super ior misty n, 1.0 cm from the neare st green inked infer ior misty n, 1.1 cm from the neare st yello w inked media l misty n, and 2.2 cm from the orang e inked later al misty n. A white metal twist biops y clip is found imbed ded withi n the lesio n. The entir e speci men is submi tted from media l to later al in B1-B2 2, with the media l and later al misty ns en face. The cold ische boo time is 1445 hours , and the forma angie fixat ion time is 1448 on 01/20 . The speci men is proce ssed on 01/21 . Recei ramandeep in forma angie label ed C, left breas t new crani al misty n new misty n on card is a 0.2 g, 2.4 x 1.5 x 0.3 cm ragge d fibro adipo se tissu e fragm ent with the affix ed surfa ce desig nated as the new crani al/gallegos perio r misty n, now inked blue. The other surfa tracey are inked orang e. The cut surfa tracey are gross ly unrem arkab le, and the speci men is entir maranda submi tted in C1-C2 . The cold ische boo time is 1450 hours , and the forma angie fixat ion time is 1502 on 01/20 . The speci men is proce ssed on 01/21 . Recei ramandeep in forma angie label ed D, left breas t new media l misty n new misty n on card is a 0.4 g, 1.7 x 1.4 x 0.3 cm porti on of fibro adipo se tissu e with the affix ed surfa ce desig nated as the new media l misty n, now inked blue. The other surfa tracey are inked orang e. The cut surfa tracey are gross ly unrem arkab le. The entir e speci men is submi tted in D1-D2 . The cold ische boo time is 1452 hours , and the forma angie fixat ion time is 1502 on 01/20 . The speci men is proce ssed on 01/21 . Recei ramandeep in forma angie label ed E, left breas t new later al misty n new misty n on card is a 0.6 g, 2.9 x 1.5 x 0.3 cm ragge d porti on of fibro adipo se tissu e with the affix ed surfa ce desig nated as the new later al misty n, now inked blue. The other surfa tracey are inked orang e. The cut surfa tracey are gross ly unrem arkab le. The entir e speci men is submi tted in E1-E2 . The cold ische boo time is 1454 hours , and the forma angie fixat ion time is 1502 on 01/20 . The speci men is proce ssed on 01/21 . Recei ramandeep in forma angie label ed F, left breas t new cauda l misty n new misty n on card is a 1.0 g, 2.8 x 2.0 x 0.3 cm porti on of adipo se tissu e with the affix ed surfa ce desig nated as the new cauda l/inf erior misty n, now inked blue. The other surfa tracey are inked orang e. The cut surfa tracey are gross ly unrem arkab le. The entir e speci men is submi tted in F1-F3 . The cold ische boo time is 1456 hours , and the forma angie fixat ion time is 1502 on 01/20 . The speci men is proce ssed on 01/21 . Recei ramandeep in forma angie label ed G, left breas t new deep misty n new misty n on card is a 0.4 g, 1.9 x 1.3 x 0.4 cm porti on of fibro adipo se tissu e with the affix ed surfa ce desig nated as the new deep/ poste rior misty n, now inked blue. The other surfa tracey are inked orang e. The cut surfa tracey are gross ly unrem arkab le. The entir e speci men is submi tted in G1-G2 . The cold ische boo time is 1458 hours , and the forma angie fixat ion time is 1502 on 01/20 . The speci men is proce ssed on 01/21 . Recei ramandeep in forma angie label ed H, left breas t new anter ior misty n new misty n on card is a 0.5 g, 3.3 x 2.0 x 0.2 cm porti on of ragge d fibro adipo se tissu e with the affix ed surfa ce desig nated as the new anter ior misty n, now inked blue. The other surfa tracey are inked orang e. The cut surfa tracey are gross ly unrem arkab le. The entir e speci men is submi tted in H1-H2 . The cold ische boo time is 1500 hours , and the forma angie fixat ion time is 1502 on 01/20 . The speci men is proce ssed on 01/21 . The tissu maribel is proce ssed as forma angie-f ixed paraf fin-e mbedd ed secti ons. ct/ 024 END OF REPOR T Not Available [place] Only - [facility] [address] [place], [address], 05/26/2024 11:50:18 01/01/20 24 11/18/2023 imagi ng/di agnos tic resul t No observ ation record ed. [email or web address] Not Available 12/31 13:53:54 01/03/20 24 12/30/2023 US, breas t, unila teral , limit ed [facility] [address] [address] Teleph one Name: Jennifer Pérez [id number] Exam Date: 2023 Age: 58 Physic nikhil: Hilda martinez MD, Tierra soria : 1965 Examin ation: US BREAST LEFT LIMITE D (GEN SURG) EXAM: US BREAST LEFT LIMITE D (GEN SURG) ACCESS ION: [id number] EXAM DATE: 024 2:20 PM HISTOR Y: left breast cancer , evalua te for intrao perati ve locali zation method . COMPAR CHRISTIANO: none. FINDIN GS: Limite d left breast ultras ound perfor med. Focuse d US 12 o clock at biopsy site reveal s postbi opsy hemato ma with clip IMPRES DARYL: US visibl e target for intrao perati ve locali zation RECOMM ENDATI ON: 1. Plan US guided BCT . Electr onical ly signed in Lucero cribe by: Tierra martinez on:01/03/2024 3:49 PM cc: Page PAGE 1 [facility] 1 INTERFACE [place] Only - [facility] [address] [place], [address], 01/03/2024 16:52:20 01/09/20 24 01/08/2024 elect aurora suazogr am, routi ne ECG, 12 leads min No observ ation record ed. ENRIQUE Not Available 2023 14:05:52 01/21/20 24 01/21/2024 NM, lymph scan [address] [address] Teleph one [phone] Name: Jennifer Pérez [id number] Exam Date: 2023 Age: 58 Physic nikhil: Hilda martinez MD, Tierra soria : 1965 Examin ation: NM SENTIN EL NODE IMAGIN G EXAMIN ATION: NM SENTIN EL NODE IMAGIN G DATE OF STUDY: 2023 9:45 AM RADIOP HARMAC EUTICA L: 500 uCi Tc-99m (tilma nocept millip ore-fi ltered sulfur colloi d) inject ed intrad ermall y in the periar eolar region at the 12 o'cloc k positi on of the left breast . HISTOR Y: Breast cancer TECHNI QUE: Images were obtain ed in the anteri or and left anteri or obliqu e projec tions. FINDIN GS: These demons trate at least one draini ng lymph node(s ) in the left axilla . This lymph node was marked . Imagin g availa ble for use in the operat ing room. IMPRES DARYL: Sentin el node(s ) identi fied for subseq uent intrao perati ve remova l with gamma probe augusto snell. Electr onical ly signed in Lucero cribe by: MIKE Yee MD on: 11:01 AM cc: Page PAGE 1 of [facility] ES 1 [email or web address] [place] Only - [place] [facility] [address], [address], 01/21/2024 12:19:13 01/22/20 24 01/22/2024 XR, surgi shakeel speci men [facility] [address] [place] [address] Teleph one [phone] Name: JENNIFER PÉREZ [id number] Exam Date: 2023 Age: 58 Physic nikhil: HILDA MARITNEZ MD, RACHAE L : 1965 Examin ation: MAMM SURGIC AL SPECIM EN EXAM: MAMM SURGIC AL SPECIM EN HISTOR Y: Lumpec trent specim en for invasi ve ductal carcin fantasma FINDIN GS: The specim en radiog raph contai ns a biopsy clip with underl leelee mass with negati ve radiog raphic margin s. IMPRES DARYL: As above Electr onical ly signed in Lucero cribe by: DEYANIRA MELGAR MD on: 8:17 AM cc: Page PAGE 1 of [facility] ES 1 [email or web address] [facility] [place] [facility] [address] [place] [address], [id number], 01/31/2024 17:18:37 Result Notes Documentation Provider Name and Address Organization Details Recorded Time Nm, Lymph Scan : [facility] [address] [place] [address] Name: Radha Brooke Exam Date: 01/21/2024 Age: 58 Physician: MD Esteban Rachael : 1965 Examination: NM SENTINEL NODE IMAGING EXAMINATION: NM SENTINEL NODE IMAGING DATE OF STUDY: 01/21/2024 9:45 AM RADIOPHARMACEUTICAL: 500 uCi Tc-99m (tilmanocept millipore-filtered sulfur colloid) injected intradermally in the periareolar region at the 12 o'clock position of the left breast. HISTORY: Breast cancer TECHNIQUE: Images were obtained in the anterior and left anterior oblique projections. FINDINGS: These demonstrate at least one draining lymph node(s) in the left axilla. This lymph node was marked. Imaging available for use in the operating room. IMPRESSION: [place] node(s) identified for subsequent intraoperative removal with gamma probe guidance. Electronically signed in KnockaTVcribe by: DARBY LLANOS MD on:01/21/2024 11:01 AM cc: Page PAGE 1 of NUMPAGES 1 Raine Esteban MD, FACS [address] [place] [address], [phone], [facility] 01/21/2024 12:19:13 Xr, Surgical Specimen : [address] [address] Name: RADHA BROOKE Exam Date: 01/21/2024 Age: 58 Physician: MD EULALIA, RAINE : 1965 Examination: MAMM SURGICAL SPECIMEN EXAM: MAMM SURGICAL SPECIMEN HISTORY: Lumpectomy specimen for invasive ductal carcinoma FINDINGS: The specimen radiograph contains a biopsy clip with underlying mass with negative radiographic margins. IMPRESSION: As above Electronically signed in PowerScribe by: DEYANIRA STUBBS MD on:01/22/2024 8:17 AM cc: Page PAGE 1 of NUMPAGES 1 Raine Esteban MD, [address], [phone], [facility] 01/31/2024 17:18:37 Problems Name Problem SNOMED Code Status Onset Date Resolution Date Notes Provider Name and Address Organization Details Recorded Time Low back pain 278586780 Active 2023 Cresenciodevon Ellyn [facility] 4 11:42:07 Overlappi ng malignant neoplasm of female breast 734573009 Active 2023 C50.812 Gonzalez Block [facility] 4 15:56:56 Carcinoma of breast 461824966 Active 2023 April Hernandez [facility] 4 19:34:51 Malignant neoplasm of overlappi ng sites of breast 829416195 Active 2023 Geeta Banks [facility] 4 15:33:07 Postopera tive visit 010813951 Active 2023 S/P 01-21-2024 Left breast lumpectomy sentinel lymph node biopsy intraopera tive localizati on using ultrasound oncoplasti c local tissue flap rearrangem ent Gonzalez Block [facility] 4 08:43:58 Problem Notes None recorded. Procedures Surgical History Date Name Laterality Status Provider Name and Address Organization Details Recorded Time 01/21/20 SC Operative Report completed Raine Esteban MD, FACS [address] [place] [address], [phone], [facility] 01/21/2024 16:25:32 01/21/20 SC Anes PECS Block completed Scott Stevenson MD [address] [place] [address], [phone], [facility] 01/21/2024 14:29:54 01/21/20 lumpectomy of breast completed [facility] 01/22/2024 08:44:28 01/21/20 sentinel lymph node biopsy completed [facility] 01/22/2024 08:44:42 12/30/19 Breast Ultrasound completed Raine Esteban MD, FACS [address] [address] [place] [address], [phone], [facility] 01/03/2024 13:01:18 Colonoscopy with biopsy completed Not Available Health Note 12/24/2023 00:47:30 Removal of gallbladder completed Not Available Health Note 12/24/2023 00:47:30 Partial hysterectomy completed Not Available Health Note 12/24/2023 00:47:30 Imaging Results None recorded. Procedure Notes None recorded. Medical Equipment None Reported. Allergies No known drug allergies Medications Name Sig Start Date Stop Date Status Note LastModified by Organization Details LastModified Time cyclobenzap rine 10 mg tablet TAKE 1 TABLET BY MOUTH THREE TIMES DAILY 01/20 completed Not Available Not Available Not Available hydroxyzine pamoate 100 mg capsule 01/13 completed Not Available Not Available Not Available atorvastati n 40 mg tablet TAKE 1 TABLET BY MOUTH DAILY 12/29 completed Not Available Not Available Not Available methocarbam ol 500 mg tablet TAKE 1 TABLET BY MOUTH TWICE DAILY active Not Available Not Available No t Available anastrozole 1 mg tablet TAKE 1 TABLET BY MOUTH DAILY active Not Available Not Available No t Available bupropion HCl SR 150 mg tablet,12 hr sustained-r elease TAKE 1 TABLET BY MOUTH TWICE DAILY 12/29 completed Not Available Not Available Not Available atorvastati n 80 mg tablet TAKE 1 TABLET BY MOUTH DAILY active Not Available Not Available No t Available prednisone 10 mg tablet TAKE 1 TABLET BY MOUTH TWICE DAILY 01/13 completed Not Available Not Available Not Available gabapentin 600 mg tablet TAKE 1 TABLET BY MOUTH THREE TIMES DAILY active Not Available Not Available No t Available trazodone 50 mg tablet TAKE 2 TABLETS BY MOUTH EVERY DAY AT BEDTIME active Not Available Not Available No t Available tizanidine 4 mg tablet TAKE 1 TABLET BY MOUTH TWICE DAILY NEEDED active Not Available Not Available No t Available hydrocodone 5 mg-acetamin ophen 325 mg tablet TAKE 1 TABLET BY MOUTH EVERY 8 HOURS NEEDED FOR PAIN 02/05 completed Not Available Not Available Not Available warfarin 7.5 mg tablet TAKE 1 TABLET BY MOUTH DAILY active Not Available Not Available No t Available sucralfate 1 gram tablet TAKE 1 TABLET BY MOUTH THREE TIMES DAILY active Not Available Not Available No t Available hydroxyzine pamoate 50 mg capsule TAKE 1 CAPSULE BY MOUTH THREE TIMES DAILY NEEDED FOR ANXIETY 01/13 completed Not Available Not Available Not Available omeprazole 40 mg capsule,del ayed release TAKE 1 CAPSULE BY MOUTH DAILY active Not Available Not Available No t Available tramadol 50 mg tablet TAKE 1 TABLET BY MOUTH THREE TIMES DAILY active Not Available Not Available No t Available propranolol 10 mg tablet TAKE 1 TABLET BY MOUTH THREE TIMES DAILY NEEDED FOR ANXIETY 01/20 completed Not Available Not Available Not Available warfarin 6 mg tablet TAKE 1 TABLET BY MOUTH DAILY active Not Available Not Available No t Available potassium chloride ER 20 mEq tablet,exte nded release(par t/cryst) TAKE 1 TABLET BY MOUTH THREE TIMES DAILY active Not Available Not Available No t Available bupropion HCl 75 mg tablet TAKE 1 TABLET BY MOUTH TWICE DAILY 01/13 completed Not Available Not Available Not Available mirtazapine 15 mg tablet TAKE 1 TABLET BY MOUTH AT BEDTIME 12/29 completed Not Available Not Available Not Available lorazepam 1 mg tablet TAKE 1/2 TABLET BY MOUTH TWICE DAILY NEEDED FOR ANXIETY active Not Available Not Available No t Available letrozole 2.5 mg tablet TAKE 1 TABLET BY MOUTH DAILY active Not Available Not Available No t Available methylpredn isolone 4 mg tablets in a dose pack FOLLOW PACKAGE DIRECTION S 12/29 completed Not Available Not Available Not Available losartan 50 mg-hydrochl orothiazide 12.5 mg tablet TAKE 1 TABLET BY MOUTH EVERY MORNING active Not Available Not Available No t Available enoxaparin 100 mg/mL subcutaneou s syringe INJECT THE ENTIRE CONTENTS OF 1 SYRINGE INTO THE SKIN TWICE DAILY FOR 2 WEEKS 02/05 completed Not Available Not Available Not Available aripiprazol e 10 mg tablet TAKE 1 TABLET BY MOUTH EVERY DAY 12/29 completed Not Available Not Available Not Available potassium chloride ER 20 mEq tablet,exte nded release TAKE 1 TABLET BY MOUTH THREE TIMES DAILY active Not Available Not Available No t Available Vitals Date Recorded Body weight Systolic And Diastolic Provider Name and Address Organization Details Last Updated DateTime 12/30/2023 515038.91 g 132/86 mm[Hg] [facility]23 15:00:57 Date Recorded Body weight Systolic And Diastolic Provider Name and Address Organization Details Last Updated DateTime 02/06/2024 917020.63 g 128/80 mm[Hg] Ny Mendesestella [facility] 02/06/2024 15:50:15 Social History Question Answer Notes LastModified by [employer] Details LastModified Time Tobacco Smoking Status Current Every Day Smoker Not Available Health Note 12/24/2023 00:47:30 Do You Have An Advance Directive? No [email or web address] Information not available 12/24/2023 What Is Your Level Of Caffeine Consumption? None [email or web address] Information not available 12/24/2023 How Many Times Per Week Do You Exercise? Less Than 1 Time Per Week [email or web address] Information not available 12/24/2023 How Many Packs Per Day (PPD)? 1 Pack Per Day [email or web address] Information not available 12/24/2023 How Long Have You Smoked? 38 Years [email or web address] Information not available 12/24/2023 Do You Have A Medical Power Of Regional Sales Engineer? No [email or web address] Information not available 12/24/2023 What Was The Date Of Your Most Recent Tobacco Screening? 12/24/2023 [email or web address] Information not available 12/24/2023 What Is Your Relationship Status? [email or web address] Information not available 12/24/2023 Sex: Unknown Functional Status Question Answer Note LastModified by [employer] Details LastModified Time Do you use any illicit or recreational drugs? No [email or web address] Information not available 12/24/2023 What is your level of alcohol consumption? None [email or web address] Information not available 12/24/2023 Are you currently employed? No [email or web address] Information not available 12/24/2023 What is your occupation? N/A [email or web address] Information not available 12/24/2023 What is your exercise level? None [email or web address] Information not available 12/24/2023 Mental Status None recorded. Family History Relationship Description Onset Age of this Age Resolved Age Notes LastModified by Organization Details LastModified Time Mother Family history of malignant neoplasm [email or web address] Not available 2023 00:47:29 Mother Diabetes mellitus [email or web address] Not available 2023 00:47:29 Mother Cerebrovascu lar accident [email or web address] Not available 00:47:29 Father Family history of malignant neoplasm [email or web address] Not available 2023 00:47:29 Father Chronic obstructive pulmonary disease [email or web address] Not available 2023 00:47:29 Father Heart disease [email or web address] Not available 2023 00:47:29 Father Hypertensive disorder [email or web address] Not available 2023 00:47:29 Father Hypercholest erolemia [email or web address] Not available 2023 00:47:29 Brother Hypertensive disorder [email or web address] Not available 2023 00:47:29 Maternal Grandmother Cerebrovascu lar accident [email or web address] Not available 00:47:29 Medical History Condition Response Diabetes N Anxiety Disorder Y Bleeding Disorder Y Attention-deficit Hyperactivity Disorder Y High Blood Pressure Y Arthritis N Hyperlipidemia N Cancer Y Stroke N Thyroid Problems N Asthma N Depression Y COPD Y Anemia N Seizures N Heart Disease N Fibromyalgia N Osteoporosis N Kidney Disease N Gynecological HistoryNo gynecological history recorded. Obstetrics History GPAL:G 0 P 0 0 0 0 Past Encounters Encounter ID Performer Location Encounter Start Date Encounter Closed Date Diagnosis/Indication Diagnosis SNOMED-CT Code Diagnosis ICD10 Code Diagnosis Note [id number] Raine Esteban MD, FACS [address] [place] [address] Surg ([place]) [address] [place] [address],[address] [place] [address] 12/30/2023 14:14:24 12/30/2023 16:49:41 Overlapping malignant neoplasm of female breast 762403331 C50.819 [id number] Ulisses Stevenson MD [facility] OR Anesthesi a ([place]) [address] [place] [phone] 01/21/2024 11:47:11 01/29/2024 09:50:24 [id number] Raine Esteban MD, FACS ASC Gen Surg ([place]) [address] [place] [address], 2[address] [place] [address] 01/21/2024 11:47:12 01/28/2024 16:56:46 [id number] Raine Esteban MD, FACS 900 3rd Gen Surg ([place]) [address] [place] [address] 02/06/2024 14:18:20 02/06/2024 16:26:14 Postoperative visit [id number] Z48.89 Health Concerns Section Related Observation LastModified by Organization Detai ls LastModified Time None Recorded Concern Status LastModified by Organization Details LastModified Time None Recorded Advance Directives Directive N: Payers Insurance Date Sequence Insurance Name Policy Number Policy Mendez Covered Member ID Mendez Member ID Guarantor Name 09/02/2024 1 [place] Radha Brooke [id number] Radha Brooke 09/02/2024 2 [place] [facility] Radha Brooke [id number] Radha Brooke Notes Date Note Type Note Provider Name and Address Organization Details Recorded Time 4 text/html Radha presents for evaluation of her left breast cancer.She was in her usual state of health when she presented for screening mammogram and was found to have an asymmetric density that was targeted for further views and biopsy, which revealed her cancer. She did not note any masses, skin changes, nipple discharge or axillary masses.Her last mammogram was 5 years ago.She has not previously had breast surgery or breast biopsy.She is not on any hormones. She has a history of non-melanoma skin cancer.She has not had chemo ro XRT. She has not had autoimmune disease. 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 She has typically used a lovenox bridge in the past. Dr. Sarah Bergman manages her anticoagulation. Family historymom- breast cancer 75brother prostate cancer unknown age paternal aunt colon cancer unknown age Raine Esteban MD, FACS [address] [place] [address], [phone], [facility] 01/03/2024 13:02:07 4 text/html [place] [facility] PRE-ANESTHETIC EVALUATIONReported bypatient.Reason for Visit:PROPOSED PROCEDURE: LT BREAST LUMPECTOMY & SENTINEL NODE BX; SURGEON: Eulalia; PREOP DIAGNOSIS: Malignant neoplasm of ovrlp sites of left female breast Review of Systems General:Exercise tolerance moderate; Denies SOB, HOLLOWAY, PND; Denies chest pain or chest tightness; Obesity Cardiac:No Hx of CAD; Hypertension; Hyperlipidemia Vascular:H/O DVT; H/O PE; Patient is on Coumadin. Last dose was 5 days ago. Pulmonary:Respiratory system at baseline; COPD ,stable ; Current every day smoker; Smoking Hx, 1 ppd 38 years GI:GERD ,controlled Musculoskeletal:Rheumat oid arthritis Neuro:H/O Migraines Pysch:Anxiety Hem/Onc:Breast cancer hx Prior Anesthetic Complication:no history of anesthesia complications Family Anesthetic Hx:no history of anesthesia complications Physical Exam: AirwayMP II TeethEdentulous NeckFull range of motion CardiovascularRegular rate and rhythm RespiratoryClear to auscultation bilaterally; No wheeze noted GastrointestinalNPO status >6 hrs solids, >2 hrs clear liquids Vital Signs:Vital signs reviewed. Please refer to nursing preop note for values Assessment:ASA PS: III Plan:General Premed:Meclizine; Tylenol; Versed Post-Op Pain Management:Single Injection PECS I/ II Blocks with Ultrasound Guidance Discussion:I have discussed with the patient the anesthetic plan, alternatives, pertinent risks, and complications; including but not limited to PONV, dental injury, sore throat, FL, stroke, etc. All questions were answered. Patient verbalize(s) understanding and agree(s) to proceed.; I have also discussed the PECS nerve block with the patient. All potential complications were described including, but not limited to: bleeding, infection; block failure; pneumothorax; temporary or permanent nerve damage intravascular injection of local anesthetic with subsequent possible tinnitus, seizure, cardiovascular collapse, ; It was also noted in the discussion that the surgery itself can injure nerves and cause temporary or permanent post operative pain, such as the surgical incision. All questions were answered. The patient was fully informed and agrees to proceed with the block as described. Scott Stevenson MD [address] [place] [address], [phone], [facility] 01/21/2024 14:30:07 OBGyn Episode No OBEpisode recorded.
--- OUTSIDE RECORDS SUMMARY | 2024-10-05 14:54 | XMS_ITS | Clinical Summary ---
Author Organization [facility] Address [address] [place] [address] Care Team Providers Care Feeder Catcher Name Role Phone Leroy North AGUERO Primary Care Provider [phone] Allergies No known active allergies Medications losartan (COZAAR) 50 MG tablet Take 50 mg by mouth daily. Active gabapentin (NEURONTIN) 600 MG tablet Take 600 mg by mouth 3 (three) times daily. Active sucralfate (CARAFATE) 1 G tablet Take 1 g by mouth 4 (four) times daily before meals and nightly. Active traZODone (DESYREL) 50 MG tablet Take 100 mg by mouth nightly at bedtime. Active losartan-hydroC HLOROthiazide (HYZAAR) 50-12.5 MG tablet Take 1 tablet by mouth daily. Active LORazepam (ATIVAN) 1 MG tablet TAKE 1/2 TABLET BY MOUTH TWICE DAILY NEEDED FOR ANXIETY Active traMADol (ULTRAM) 50 MG tablet Take 1 tablet (50 mg total) by mouth 4 (four) times daily. Active atorvastatin (LIPITOR) 80 MG tablet Take 1 tablet (80 mg total) by mouth daily. Active omeprazole (PRILOSEC) 40 MG capsule Take 1 capsule (40 mg total) by mouth daily. Active warfarin (COUMADIN) 7.5 MG tablet Take 1 tablet (7.5 mg total) by mouth daily. Active potassium chloride CR (K-TAB) 20 MEQ tablet Take 1 tablet (20 mEq total) by mouth 3 (three) times daily. Active propranolol (INDERAL) 10 MG tablet TAKE 1 TABLET BY MOUTH THREE TIMES DAILY NEEDED FOR ANXIETY Oral for 90 Active tiZANidine (ZANAFLEX) 4 MG tablet 04/01/2024 Active letrozole (FEMARA) 2.5 MG tablet Take 1 tablet by mouth daily. 30 tablet 3 07/20/2024 Active Active Problems Problem Noted Date Diagnosed Date Breast cancer ([facility]) 01/08/2024 Low back pain 09/24/2023 Encounters Date Type Department Care Team Description 10/01/[address] [place] [address] Everett Jade MA Appointment Request 08/05/2024 12:59 PM CDT - 08/05/2024 11:59 PM CDT Hospital Encounter [facility] [address] [place] [address] [place] [address] Johan Lujan MD Discharge Disposition: Home or Self Care (Routine Discharge) 08/05/2024 Travel 07/20/2024 Orders Only [address] [place] [address] Johan Lujan MD 07/20/[address] [place] [address] Tylor Tena, RN Question from Last 3 Months Family History Medical History Relation Comments Breast Cancer Mother Relation Status Comments Mother Social History Tobacco Use Types Packs/Day Years Used Date Smoking Tobacco: Every Day Cigarettes Smokeless Tobacco: Never Tobacco Cessation:Ready to Q uit: Not Asked; Counseling Given: Not Answered Comments No Sex and Gender Information Value Date Recorded Sex Assigned at Female 05/06/2024 1:56 PM [employer] Legal Sex Female 8:47 PM CDT Gender Identity Not on file Sexual Orientation Not on file Last Filed Vital Signs Vital Sign Reading Time Taken Comments Blood Pressure 133/72 05/06/2024 2:09 PM CIGARETTE FILTER INSPECTOR Pulse 81 05/06/2024 2:09 PM CIGARETTE FILTER INSPECTOR Temperature 36 C (96.8 F) 05/06/2024 2:09 PM CIGARETTE FILTER INSPECTOR Respiratory Rate 20 05/06/2024 2:09 PM CIGARETTE FILTER INSPECTOR Oxygen Saturation 98% 05/06/2024 2:09 PM CIGARETTE FILTER INSPECTOR Inhaled Oxygen Concentration - - Weight 105.1 kg (231 lb 9.6 oz) 05/06/2024 2:09 PM CIGARETTE FILTER INSPECTOR Height 177.8 cm (5' 10) 05/06/2024 2:09 PM CIGARETTE FILTER INSPECTOR Body Mass Index 33.23 05/06/2024 2:09 PM CIGARETTE FILTER INSPECTOR Plan of Treatment Health Maintenance Due Date Last Done Comments Colorectal Cancer Screening Colonoscopy (10 Years) 1967 Annual Physical 10/04/1970 COVID-19 Vaccine (#1) 10/04/1972 Hepatitis C 10/04/1985 DTaP, Tdap and Td Vaccines (1 - Tdap) 10/04/1986 Hepatitis B Vaccines (1 of 3 - 19+ 3-dose series) 10/04/1986 Pneumococcal Vaccine: 50+ Years (1 of 2 - PCV) 10/04/1986 Zoster Vaccines (1 of 2) 10/04/1986 Mammogram Screening 08/05/2026 08/05/2024, 11/07/2023, 10/21/2023, Additional history exists Meningococcal B Vaccine Aged Out No l onger eligible based on patient's age to complete this topic Meningococcal Vaccine Aged Out No mayuri nicole eligible based on patient's age to complete this topic RSV Immunizations Under 20 Months Aged Out No longer eligible based on patient's age to complete this topic Procedures Procedure Name Priority Date/Time Associated Diagnosis Comments MG DIAG W RUBINA LT DIGI Routine 08/05/2024 2:22 PM CDT Breast cancer ([facility]) Other abnormal and inconclusive findings on diagnostic imaging of breast [employer] Routine 08/05/2024 1:41 PM CDT Breast cancer ([facility]) Personal history of malignant neoplasm of breast from Last 3 Months Results * MG DIAG W RUBINA LT DIGI (08/05/2024 2:22 PM CDT) Anatomical Region Laterality Modality Breast Left Mammography, Rad iographic Imaging 08/05/2024 2:01 PM CDT Narrative 08/05/2024 2:[address] [place] [address] Examination(s): LEFT DIGITAL DIAGNOSTIC MAMMOGRAM WITH TOMOSYNTHESIS LEFT Vertro BREAST [employer] [id number] Exam Date: 08/05/2024 12:59 PM Clinical Indication: Female 58 years of age with history of left breast cancer treatment, including surgical treatment and radiation treatment. Now with a lump in the left axilla region. Has a postoperative seroma/hematoma in the left axilla region as seen on CT radiation therapy planning 05/28/2024. Comparison: 05/28/2024 CT radiation therapy planning Technique: A left diagnostic mammogram with dedicated additional views. Tomosynthesis imaging acquisition. Study supplemented with computer aided detection program. Static left breast and axilla sonographic grayscale images obtained supplemented with Doppler. Tissue density: The breast tissue is almost entirely fatty. MAMMOGRAM FINDINGS: A left diagnostic mammogram was done. Surgical fab in the left breast with radiation treatment related thickening of the periareolar skin. Surgical fab also in the left axilla. Adjacent the fab there is a 2.6 cm oval hyperdensity which likely corresponds to the seroma/hematoma discussed on CT radiation therapy planning 05/28/2024. This will be confirmed with ultrasound today. No suspicious breast mass, distortion, or abnormal calcifications. LEFT BREAST AND AXILLA ULTRASOUND FINDINGS: Targeted left ultrasound performed. The finding on CT 05/28/2024 and the current mammogram corresponds to a subcutaneous seroma/hematoma measuring 2.1 x 2.6 x 2.1 cm. This has a small track of scar at its surface going into the skin. No solid appearing mass or adenopathy. IMPRESSION No evidence of breast cancer. Today's left mammogram will serve as her new baseline since completing breast cancer treatment. A 2.1 x 2.6 x 2.1 cm subcutaneous seroma/hematoma at the surgical scar of the left axilla. This corresponds to the palpable site of concern. It is grossly unchanged from the CT radiation therapy planning 05/28/2024. RECOMMENDATION: 1: Follow-up Diagnostic Mammogram Left in 6 Months to serve as a follow-up for her completing breast cancer treatment. 2: Routine Screening Mammogram Right in 6 Months. 3. I will defer the care of her subcutaneous seroma/hematoma in the left axilla to the breast cancer care team. I advised her to follow-up with her breast cancer care team doctor. ASSESSMENT: ACR BI-RADS CATEGORY 3 - PROBABLY BENIGN FINDING(S) Today, I spent 2-3 minutes in [id number] discussion with the patient about the finding(s), impression(s), and recommendation(s). I answered her questions, and she understands today's imaging results. Ordered By: JOHAN LUJAN Interpreted By: Yehuda Patino MD, 08/05/2024 2:01 PM us Johan Lujan MD MAMMO Final Result * US BREAST LT [facility] [place] (08/05/2024 1:41 PM CDT) Anatomical Region Laterality Modality Breast Left Ultrasound, Radi ographic Imaging 08/05/2024 2:01 PM CDT Narrative 08/05/2024 2:[address] [place] [address] Examination(s): LEFT DIGITAL DIAGNOSTIC MAMMOGRAM WITH TOMOSYNTHESIS LEFT Vertro BREAST [facility] [place] [id number] Exam Date: 08/05/2024 12:59 PM Clinical Indication: Female 58 years of age with history of left breast cancer treatment, including surgical treatment and radiation treatment. Now with a lump in the left axilla region. Has a postoperative seroma/hematoma in the left axilla region as seen on CT radiation therapy planning 05/28/2024. Comparison: 05/28/2024 CT radiation therapy planning Technique: A left diagnostic mammogram with dedicated additional views. Tomosynthesis imaging acquisition. Study supplemented with computer aided detection program. Static left breast and axilla sonographic grayscale images obtained supplemented with Doppler. Tissue density: The breast tissue is almost entirely fatty. MAMMOGRAM FINDINGS: A left diagnostic mammogram was done. Surgical fab in the left breast with radiation treatment related thickening of the periareolar skin. Surgical fab also in the left axilla. Adjacent the fab there is a 2.6 cm oval hyperdensity which likely corresponds to the seroma/hematoma discussed on CT radiation therapy planning 05/28/2024. This will be confirmed with ultrasound today. No suspicious breast mass, distortion, or abnormal calcifications. LEFT BREAST AND AXILLA ULTRASOUND FINDINGS: Targeted left ultrasound performed. The finding on CT 05/28/2024 and the current mammogram corresponds to a subcutaneous seroma/hematoma measuring 2.1 x 2.6 x 2.1 cm. This has a small track of scar at its surface going into the skin. No solid appearing mass or adenopathy. IMPRESSION No evidence of breast cancer. Today's left mammogram will serve as her new baseline since completing breast cancer treatment. A 2.1 x 2.6 x 2.1 cm subcutaneous seroma/hematoma at the surgical scar of the left axilla. This corresponds to the palpable site of concern. It is grossly unchanged from the CT radiation therapy planning 05/28/2024. RECOMMENDATION: 1: Follow-up Diagnostic Mammogram Left in 6 Months to serve as a follow-up for her completing breast cancer treatment. 2: Routine Screening Mammogram Right in 6 Months. 3. I will defer the care of her subcutaneous seroma/hematoma in the left axilla to the breast cancer care team. I advised her to follow-up with her breast cancer care team doctor. ASSESSMENT: ACR BI-RADS CATEGORY 3 - PROBABLY BENIGN FINDING(S) Today, I spent 2-3 minutes in [id number] discussion with the patient about the finding(s), impression(s), and recommendation(s). I answered her questions, and she understands today's imaging results. Ordered By: JOHAN LUJAN Interpreted By: Yehuda Patino MD, 08/05/2024 2:01 PM Johan Lujan MD ULTRASOUND Final Result from Last 3 Months Insurance MEDICAID MEDICARE Care Teams Feeder Catcher Relationship Specialty Start Date End Date [place] DO [address] [place] [address] PCP - General FAMILY PRACTICE 01/06/22
--- OUTSIDE RECORDS SUMMARY | 2024-10-05 14:54 | XMS_ITS ---
Author Organization [facility] Address [address] [place] [address] [place] [address] Care Team Providers Care Accelerator Systems Director Name Role Phone DO GUZMÁN JOSH Primary Care Provider Robert León Unavailable [phone] ALLERGIES No Known Allergies REASON FOR VISIT Follow Up, Left > Right Low Back Pain, Left > Right Mid Back Pain MEDICATIONS Medication SIG (Take, Route, Frequency, Duration) Notes Start Date End Date Status buPROPion HCl 75 MG TAKE 1 TABLET BY MOUTH TWICE DAILY Oral for 27 F902,Unavaila ble Active Warfarin Sodium 7.5 MG 1 tablet Orally Once a day Active Losartan Potassium-HCTZ 50-12.5 MG 1 tablet Oral Once a day Active methylPREDNISolone 4 MG as directed Orally 024 Active hydrOXYzine Pamoate 50 MG 1 capsule as n eeded Oral Active Propranolol HCl 10 MG TAKE 1 TABLET BY MOUTH THREE TIMES DAILY NEEDED FOR ANXIETY Oral for 90 F411,Unavaila ble Active Mirtazapine 15 MG TAKE 1 TABLET BY MOUTH AT BEDTIME Oral for 30 F411,Unavaila ble Active LORazepam 1 MG TAKE 1/2 TABLET BY MOUTH EVERY DAY NEEDED Oral for 22 Active ARIPiprazole 10 MG TAKE 1 TABLET BY MOUTH EVERY DAY Oral for 30 F3341,Unavail able Active traZODone HCl 50 MG TAKE 1 AND 1/2 TABLETS BY MOUTH EVERY DAY AT BEDTIME Oral for 30 Active traMADol HCl 50 MG 1 tablet as needed Orally Once a day for 30 days 06/28/2020 Active Gabapentin 600 MG 1 capsule Oral every 6 hours for 30 days Active HYDROcodone-Acetaminophen 5-325 MG TAKE 1 TABLET BY MOUTH EVERY 8 HOURS NEEDED FOR PAIN Oral for 6 M549,Unavaila ble Active traMADol HCl 50 MG 1 tablet as needed Orally BID severe pain for 30 days 02/02/2021 Active Cyclobenzaprine HCl 10 MG TAKE 1 TABLET BY MOUTH THREE TIMES DAILY Oral for 10 Active Xanax 0.25 MG 1-2 tablets Orally 30 minutes prior to MRI for 1 day Active Xanax 0.25 MG 1-2 tablets Orally 30 minutes prior to injection Active Voltaren 1 % apply 4 grams to painful joint(s) Transdermal 4x/day as needed for pain for 30 days Active methylPREDNISolone 4 MG as directed Orally 020 Active Acetaminophen Extra Strength 500 MG 1 tablet as needed Orally every 6 hrs Active Omeprazole 40 MG 1 capsule 30 minutes before morning meal Oral Once a day Active Potassium Chloride ER 20 MEQ 1 tablet with food Oral QID Active Carafate 1 GM 1 tablet on an empty stomach Orally 4x/day Active Atorvastatin Calcium 40 MG 1 tablet Oral ly Once a day for 30 day(s) Active VITAL SIGNS Blood pressure systolic 112 mm Hg 04/23/19 24 Blood pressure diastolic 86 mm Hg 024 Heart Rate 80 /min 04/23/2023 Respiratory Rate 18 /min 04/23/2023 Height 5 ft 10 in in 04/23/2023 Weight 220 lbs 04/23/2023 BMI 31.56 kg/m2 04/23/2023 Encounters Encounter Location Date Provider Diagnosis [facility] [address] [place] [id number] 04/23/2023 Robert Manning Radiculopathy, cervical region M54.12 ; Spondylosis without myelopathy or radiculopathy, lumbar region M47.816 ; 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 Z79.891 ; Spondylosis without myelopathy or radiculopathy, cervical region M47.812 and Other intervertebral disc degeneration, lumbar region M51.36 ASSESSMENTS Encounter Date Diagnosis Assessment Notes Treatment Notes Treatment Clinical Notes Section Notes 04/23/2023 Radiculopathy, cervical region (ICD-10 - M54.12) 04/23/2023 Spondylosis without myelopathy or radiculopathy, lumbar region (ICD-10 - M47.816) ,schedule a bilateral L3-5 medial branch nerve block as a diagnostic and potentially therapeutic endeavor to isolate the source of the patient's facet-generated low back pain originating from the L4-5 and L5-S1 facet joints and to ultimately perform radiofrequency ablation for more durable pain relief. The risks of this procedure including pain, bleeding, infection, nerve damage, spinal cord injury, paralysis, total spinal anesthesia resulting in cardiopulmonary arrest/, respiratory distress requiring intubation, neuritis after radiofrequency ablation, hyperglycemia, insomnia, hair loss, muscle atrophy, skin depigmentation, weight gain, fluid retention, adrenal suppression, osteoporosis resulting in fractures, avascular necrosis of the hip, cataracts, bleeding gastric ulcer, worsening pain and failure to relieve pain were discussed and the patient is agreeable to proceeding at this time. 04/23/2023 [facility] (current) use of opiate analgesic (ICD-10 - Z79.891) 04/23/2023 Spondylosis without myelopathy or radiculopathy, cervical region (ICD-10 - M47.812) 04/23/2023 Other intervertebral disc degeneration, lumbar region (ICD-10 - M51.36) 04/23/2023 Other The above-named patient was evaluated in conjunction with Dr. Manning. I have discussed and reviewed all of the pertinent history, physical examination findings and diagnostic imaging results with him. As a result of our discussion, Dr. Manning has determined the above assessment and directed the treatment plan. This note was dictated using voice recognition software and therefore inadvertent errors may have occurred. This note was dictated by RUSSEL Wong PLAN OF TREATMENT Medication Medication Name Sig Start Date Stop Date Notes methylPREDNISolone 4 MG as directed Orally 04/23/2023 Treatment Notes Assessment Notes Spondylosis without myelopat hy or radiculopathy, lumbar region ,schedule a bilateral L3-5 medial branch nerve block as a diagnostic and potentially therapeutic endeavor to isolate the source of the patient's facet-generated low back pain originating from the L4-5 and L5-S1 facet joints and to ultimately perform radiofrequency ablation for more durable pain relief. The risks of this procedure including pain, bleeding, infection, nerve damage, spinal cord injury, paralysis, total spinal anesthesia resulting in cardiopulmonary arrest/, respiratory distress requiring intubation, neuritis after radiofrequency ablation, hyperglycemia, insomnia, hair loss, muscle atrophy, skin depigmentation, weight gain, fluid retention, adrenal suppression, osteoporosis resulting in fractures, avascular necrosis of the hip, cataracts, bleeding gastric ulcer, worsening pain and failure to relieve pain were discussed and the patient is agreeable to proceeding at this time. Other The above-named rubia ent was evaluated in conjunction with Dr. Manning. I have discussed and reviewed all of the pertinent history, physical examination findings and diagnostic imaging results with him. As a result of our discussion, Dr. Manning has determined the above assessment and directed the treatment plan. This note was dictated using voice recognition software and therefore inadvertent errors may have occurred. This note was dictated by RUSSEL Wong Next Appt Details Follow Up: bilateral L3-5 MB NB, Reason: Progress Notes * Examination Category Sub-Category Detail Notes Category Not es Examination/ Pre-Anesthesia Assessment General: The patient is alert and jerilyn ented X 3 in moderate distress secondary to pain UDS 08/23/2020 Compliant HEENT: Normocephalic, atrau matic. PERRL. The oropharynx is clear Neck: There is limited ran ge of motion of the cervical spine to 60 degrees with extension and lateral rotation bilaterally. There is tenderness to palpation over the bilateral C3-4 through C7-T1 facet joints. Extension and lateral rotation of the cervical spine reproduces the patients typical axial neck pain. The axial loading test is positive. There is diffuse tenderness to palpation over the bilateral cervical paraspinal muscles and significant muscle spasm throughout. There are palpable myofascial trigger points within the body of the trapezius muscles bilaterally Heart: Regular rate and rhy thm Chest: Clear to auscultatio n bilaterally Abdomen: Soft and benign Musculoskeletal and Extremities: There i s tenderness to palpation over the bilateral L2-3 through L5-S1 facet joints. Extension and lateral rotation of the lumbar spine reproduces the patient's typical axial low back pain. Wu's, [place]'s and Ga[place]'s are positive bilaterally. There is tenderness palpation over the bilateral sacroiliac joints and greater trochanters. There is tenderness to palpation over the bilateral lumbar paraspinal muscles and palpable myofascial trigger points throughout. There is weakness and atrophy of the bilateral lumbar paraspinal muscles Neurological: There is positive st raight leg raising bilaterally. There are no focal neurologic deficits in bilateral lower extremities Skin: Clean, dry and intac t Psychiatric: Mood and affect are normal History and Physical Notes * HPI (History of Present Illness) Category Sub-Category Detail Notes Category Not es Pain Management Radiographic Imaging Includes an x-ray of the thoracic and lumbar spine done on 10/08/19. The thoracic spine demonstrates normal findings. There is mild lumbar spondylosis. Specifically, there is mild facet arthropathy bilaterally at L4-5 and L5-S1. Includes a lumbar spine MRI without contrast done on 03/30/2020: L2-3: Diffuse disc bulge. L3-4 bilateral facet arthropathy. L4-L5: Bilateral facet arthropathy. L5-S1: Bilateral facet arthropathy. Thoracic spine MRI without contrast 03/30/2020: Thoracic disks. T1-T12: Disc height is maintained. T6-7: Right central disc protrusion. T7-8: Small left central disc protrusion. Cervical spine MRI without contrast 08/02/2020: C4-5: Shallow central disc protrusion indenting the ventral thecal sac. Bilateral facet arthropathy. C5-6: Posterior disc osteophyte indenting the ventral thecal sac. Bilateral facet arthropathy. C6-7: Anterior disc osteophyte with central left subarticular disc protrusion indenting the ventral thecal sac. Bilateral facet arthropathy. Mild left neuroforaminal stenosis Assessment and Follow-up: Follow-up Plan documen yareli:: Yes MIPS Quality 2020: MIPS Documented:: Compliant
--- OUTSIDE RECORDS SUMMARY | 2024-10-05 14:54 | XMS_ITS ---
Author Organization [facility] Address [address] [facility] [address] [place] [address] Care Team Providers Care Hunting Sales Associate Name Role Phone DO GUZMÁN JOSH Primary Care Provider Robert León Unavailable [phone] REASON FOR VISIT FOLLOW UP Encounters Encounter Location Date Provider Diagnosis [facility] [address] [facility] [address] [place] [address] 05/22/2023 Robert Manning PLAN OF TREATMENT No Information
--- NOTE | 2024-10-05 14:55 | ECG_ITS ---
Test Date: 2024-10-05 14:59:49 Measurements Intervals [place] Rate: 78 P: 46 ID: [id number] QRS: 63 QRSD: 85 T: 48 QT: 376 QTc: 429 Interpretive Statements SINUS RHYTHM No previous ECG available for comparison Electronically Signed On 10-05-2024 22:11:35 CDT by Juanito Flores M.D.
--- OUTSIDE RECORDS SUMMARY | 2024-10-05 14:55 | XMS_ITS ---
Author Organization [facility] Address [address] [facility] [place] [address] Care Team Providers Care Math Tutor Name Role Phone DO GUZMÁN JOSH Primary Care Provider Robert León Unavailable [phone] REASON FOR VISIT BILAT L3-5 MBNB - ILL Medicaid doesn't pay ASC, prefers afternoon MEDICATIONS Medication SIG (Take, Route, Frequency, Duration) Notes Start Date End Date Status Warfarin Sodium 7.5 MG 1 tablet Orally Once a day Active hydrOXYzine Pamoate 50 MG 1 capsule as n eeded Oral Active buPROPion HCl 75 MG TAKE 1 TABLET BY MOUTH TWICE DAILY Oral for 27 F902,Unavaila ble Active methylPREDNISolone 4 MG as directed Orally 024 Active Propranolol HCl 10 MG TAKE 1 TABLET BY MOUTH THREE TIMES DAILY NEEDED FOR ANXIETY Oral for 90 F411,Unavaila ble Active Cyclobenzaprine HCl 10 MG TAKE 1 TABLET BY MOUTH THREE TIMES DAILY Oral for 10 Active traZODone HCl 50 MG TAKE 1 AND 1/2 TABLETS BY MOUTH EVERY DAY AT BEDTIME Oral for 30 Active ARIPiprazole 10 MG TAKE 1 TABLET BY MOUTH EVERY DAY Oral for 30 F3341,Unavail able Active LORazepam 1 MG TAKE 1/2 TABLET BY MOUTH EVERY DAY NEEDED Oral for 22 Active Mirtazapine 15 MG TAKE 1 TABLET BY MOUTH AT BEDTIME Oral for 30 F411,Unavaila ble Active traMADol HCl 50 MG 1 tablet as needed Orally BID severe pain for 30 days 02/02/2021 Active HYDROcodone-Acetaminophen 5-325 MG TAKE 1 TABLET BY MOUTH EVERY 8 HOURS NEEDED FOR PAIN Oral for 6 M549,Unavaila ble Active Xanax 0.25 MG 1-2 tablets Orally 30 minutes prior to MRI for 1 day Active traMADol HCl 50 MG 1 tablet as needed Orally Once a day for 30 days 06/28/2020 Active Gabapentin 600 MG 1 capsule Oral every 6 hours for 30 days Active Carafate 1 GM 1 tablet on an empty stomach Orally 4x/day Active Xanax 0.25 MG 1-2 tablets Orally 30 minutes prior to injection Active Acetaminophen Extra Strength 500 MG 1 tablet as needed Orally every 6 hrs Active methylPREDNISolone 4 MG as directed Orally 020 Active Voltaren 1 % apply 4 grams to painful joint(s) Transdermal 4x/day as needed for pain for 30 days Active Potassium Chloride ER 20 MEQ 1 tablet with food Oral QID Active Omeprazole 40 MG 1 capsule 30 minutes before morning meal Oral Once a day Active Atorvastatin Calcium 40 MG 1 tablet Oral ly Once a day for 30 day(s) Active Losartan Potassium-HCTZ 50-12.5 MG 1 tablet Oral Once a day Active Encounters Encounter Location Date Provider Diagnosis [facility] [address] [place] [id number] 04/30/2023 Robert Manning PLAN OF TREATMENT No Information Progress Notes * Examination Category Sub-Category Detail [...] patient's typical axial low back pain. Wu's, [place]'s and Gaenslen's are positive bilaterally. There is [...]
--- OUTSIDE RECORDS SUMMARY | 2024-10-05 14:55 | XMS_ITS | Patient Health Record ---
Author Organization [facility] Address [address] [facility] [place] [address] Care Team Providers Care Auto Parts Handler Name Role Phone DO GUZMÁN JOSH Primary Care Provider Robert León Unavailable [phone] ALLERGIES No Known Allergies REASON FOR REFERRAL No Information MEDICATIONS Medication SIG (Take, Route, Frequency, Duration) Notes Start Date End Date Status Potassium Chloride ER 20 MEQ 1 tablet with food Oral QID Active traMADol HCl 50 MG 1 tablet as needed Orally BID severe pain for 30 days 02/02/2021 Active Omeprazole 40 MG 1 capsule 30 minutes before morning meal Oral Once a day Active HYDROcodone-Acetaminophen 5-325 MG TAKE 1 TABLET BY MOUTH EVERY 8 HOURS NEEDED FOR PAIN Oral for 6 M549,Unavaila ble Active Atorvastatin Calcium 40 MG 1 tablet Oral ly Once a day for 30 day(s) Active Cyclobenzaprine HCl 10 MG TAKE 1 TABLET BY MOUTH THREE TIMES DAILY Oral for 10 Active Carafate 1 GM 1 tablet on an empty stomach Orally 4x/day Active traZODone HCl 50 MG TAKE 1 AND 1/2 TABLETS BY MOUTH EVERY DAY AT BEDTIME Oral for 30 Active Xanax 0.25 MG 1-2 tablets Orally 30 minutes prior to injection Active Warfarin Sodium 7.5 MG 1 tablet Orally Once a day Active Xanax 0.25 MG 1-2 tablets Orally 30 minutes prior to MRI for 1 day Active hydrOXYzine Pamoate 50 MG 1 capsule as n eeded Oral Active traMADol HCl 50 MG 1 tablet as needed Orally Once a day for 30 days 06/28/2020 Active Losartan Potassium-HCTZ 50-12.5 MG 1 tablet Oral Once a day Active Gabapentin 600 MG 1 capsule Oral every 6 hours for 30 days Active buPROPion HCl 75 MG TAKE 1 TABLET BY MOUTH TWICE DAILY Oral for 27 F902,Unavaila ble Active methylPREDNISolone 4 MG as directed Orally 024 Active ARIPiprazole 10 MG TAKE 1 TABLET BY MOUTH EVERY DAY Oral for 30 F3341,Unavail able Active LORazepam 1 MG TAKE 1/2 TABLET BY MOUTH EVERY DAY NEEDED Oral for 22 Active Mirtazapine 15 MG TAKE 1 TABLET BY MOUTH AT BEDTIME Oral for 30 F411,Unavaila ble Active Propranolol HCl 10 MG TAKE 1 TABLET BY MOUTH THREE TIMES DAILY NEEDED FOR ANXIETY Oral for 90 F411,Unavaila ble Active Acetaminophen Extra Strength 500 MG 1 tablet as needed Orally every 6 hrs Active methylPREDNISolone 4 MG as directed Orally 020 Active Voltaren 1 % apply 4 grams to painful joint(s) Transdermal 4x/day as needed for pain for 30 days Active SOCIAL HISTORY Tobacco Use: Social History Observation Description Date Details (start date - stop date) Current Smoker NA - NA Sex Assigned At : Social History Observation Description Sex Assigned At Unknown Tobacco Use/Smoking Question Answer Notes Are you a current smoker How often do you smoke cigarettes? every day Alcohol Screen (Audit-C) Question Answer Notes Did you have a drink contain ing alcohol in the past year? Yes How often did you have a dri nk containing alcohol in the past year? Monthly or less (1 point) How many drinks did you have on a typical day when you were drinking in the past year? 1 or 2 drinks (0 point) How often did you have 6 or more drinks on one occasion in the past year? Never (0 point) Points 1 Interpretation Negative Section Notes: The patient is disabled. 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 She smokes one pack of cigarettes daily for the last 37 years. She denies alcohol or illicit drug abuse. The patient is disabled. 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 She smokes one pack of cigarettes daily for the last 37 years. She denies alcohol or illicit drug abuse. The patient is disabled. 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 She smokes one pack of cigarettes daily for the last 37 years. She denies alcohol or illicit drug abuse. The patient is disabled. 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 She smokes one pack of cigarettes daily for the last 37 years. She denies alcohol or illicit drug abuse. The patient is disabled. 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 She smokes one pack of cigarettes daily for the last 37 years. She denies alcohol or illicit drug abuse. The patient is disabled. 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 She smokes one pack of cigarettes daily for the last 37 years. She denies alcohol or illicit drug abuse. The patient is disabled. 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 She smokes one pack of cigarettes daily for the last 37 years. She denies alcohol or illicit drug abuse. The patient is disabled. 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 She smokes one pack of cigarettes daily for the last 37 years. She denies alcohol or illicit drug abuse. The patient is disabled. 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 She smokes one pack of cigarettes daily for the last 37 years. She denies alcohol or illicit drug abuse. The patient is disabled. 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 She smokes one pack of cigarettes daily for the last 37 years. She denies alcohol or illicit drug abuse. The patient is disabled. 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 She smokes one pack of cigarettes daily for the last 37 years. She denies alcohol or illicit drug abuse. The patient is disabled. 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 She smokes one pack of cigarettes daily for the last 37 years. She denies alcohol or illicit drug abuse. The patient is disabled. 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 She smokes one pack of cigarettes daily for the last 37 years. She denies alcohol or illicit drug abuse. The patient is disabled. 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 She smokes one pack of cigarettes daily for the last 37 years. She denies alcohol or illicit drug abuse. The patient is disabled. 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 She smokes one pack of cigarettes daily for the last 37 years. She denies alcohol or illicit drug abuse. PROBLEMS Problem Type ICD Code Onset Dates Problem Status W/U Status Risk SNOMED Code Notes Problem Fear of injections and transfusions (F40.231) Active confirmed Fear of medical treatment (415649110) Problem Other idiopathic peripheral autonomic neuropathy (G90.09) Active confirmed Idiopathic peripheral autonomic neuropathy (70353061) Problem Unspecified osteoarthritis, unspecified site (M19.90) Active confirmed Osteoarthritis (515457889) Problem Spondylosis without myelopathy or radiculopathy, cervical region (M47.812) Active confirmed Cervical spondylosis without myelopathy (658964244) Problem Spondylosis without myelopathy or radiculopathy, thoracic region (M47.814) Active confirmed Thoracic spondylosis without myelopathy (477312699) Problem Spondylosis without myelopathy or radiculopathy, lumbar region (M47.816) Active confirmed Lumbosacral spondylosis without myelopathy (86586166) Problem Spondylosis without myelopathy or radiculopathy, lumbosacral region (M47.817) Active confirmed Lumbosacral spondylosis without myelopathy (disorder) (98258980) Problem Other intervertebral disc degeneration, thoracic region (M51.34) Active confirmed Degeneration of thoracic intervertebral disc (41703342) Problem Other intervertebral disc degeneration, lumbar region (M51.36) Active confirmed Degeneration of lumbar intervertebral disc (11041507) Problem Sacrococcygeal disorders, not elsewhere classified (M53.3) Active confirmed Problem Radiculopathy, cervical region (M54.12) Active confirmed Cervical radiculopathy (04122066) Problem Radiculopathy, thoracic region (M54.14) Active confirmed Thoracic radiculopathy (12677067) Problem Low back pain (M54.5) Active confirmed Low back pain (272935069) Problem Neuralgia and neuritis, unspecified (M79.2) Active confirmed Neuralgia (68976892) Problem Myalgia, other site (M79.18) Active confirmed Muscle pain (12090734) PLAN OF TREATMENT Pending Test Test Name Order Date MRI : Cervical Spine without Contrast (7 0512) 07/11/2020 MRI : Lumbar Spine without contrast (721 48) 02/11/2020 MRI : Thoracic Spine without Contrast (7 2146) 02/11/2020 XRAY right shoulder 02/11/2020 Insurance Providers Payer Name Payer Address Payer Phone Subscriber Number Group Number Insured Name Patient Relationship to Insured Coverage Start Date Coverage End Date Medicare [place] [address] [address] [place] [phone] [id number] MARIA TERESA APARICIO Self - patient is the insured [place] Medicaid [address] [place] [phone] [id number] MARIA TERESA APARICIO Self - patient is the insured MEDICAL (GENERAL) HISTORY Medical History History ICD Code Hypertension COPD Pulmonary embolism Anxiety Depression PTSD GERD Restless Leg Syndrome Surgical History Surgery Date(Month/Year) Cholecystectomy
--- OUTSIDE RECORDS SUMMARY | 2024-10-05 14:55 | XMS_ITS | Encounter Summary ---
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
--- OUTSIDE RECORDS SUMMARY | 2024-10-05 15:31 | XMS_ITS | Clinical Summary ---
Author Organization [facility] Address [address] [place] [address] Care Team Providers Care Bank Worker Name Role Phone Leroy North AGUERO Primary Care Provider [phone] Allergies No known active allergies Medications losartan [...] Problem Noted Date Diagnosed Date Breast cancer ([facility]) 01/08/2024 Low back pain 09/24/2023 Encounters Date Type Department Care Team Description 10/01/[address] [place] [address] Everett Jade MA Appointment Request 08/05/2024 12:59 PM CDT - 08/05/2024 11:59 PM CDT Hospital Encounter [facility] [address] [place] [address] [place] [id number] Johan Lujan MD Discharge Disposition: Home or Self Care (Routine Discharge) 08/05/2024 Travel 07/20/2024 Orders Only [address] [place] [address] Johan Lujan MD 07/20/[address] [place] [address] Tylor Tena, RN Question from Last 3 [...] Sex Assigned at Female 05/06/2024 1:56 PM HEALTH BENEFITS SPECIALIST Legal Sex Female 8:47 PM CDT Gender Identity Not on file Sexual Orientation Not on file Last Filed Vital Signs Vital Sign Reading Time Taken Comments Blood Pressure 133/72 05/06/2024 2:09 PM HEALTH BENEFITS SPECIALIST Pulse 81 05/06/2024 2:09 PM HEALTH BENEFITS SPECIALIST Temperature 36 C (96.8 F) 05/06/2024 2:09 PM HEALTH BENEFITS SPECIALIST Respiratory Rate 20 05/06/2024 2:09 PM HEALTH BENEFITS SPECIALIST Oxygen Saturation 98% 05/06/2024 2:09 PM HEALTH BENEFITS SPECIALIST Inhaled Oxygen Concentration - - Weight 105.1 kg (231 lb 9.6 oz) 05/06/2024 2:09 PM HEALTH BENEFITS SPECIALIST Height 177.8 cm (5' 10) 05/06/2024 2:09 PM HEALTH BENEFITS SPECIALIST Body Mass Index 33.23 05/06/2024 2:09 PM HEALTH BENEFITS SPECIALIST Plan of Treatment Health Maintenance Due Date [...] Routine 08/05/2024 2:22 PM CDT Breast cancer ([facility]) Other abnormal and inconclusive findings on diagnostic imaging of breast [email or web address] Routine 08/05/2024 1:41 PM CDT Breast cancer ([facility]) Personal history of malignant neoplasm of breast from Last 3 Months Results * MG DIAG W RUBINA LT DIGI (08/05/2024 2:22 PM CDT) Anatomical Region Laterality Modality Breast Left Mammography, Rad iographic Imaging 08/05/2024 2:01 PM CDT Narrative 08/05/2024 2:11 PM CDT [address] [place] [address] Examination(s): LEFT DIGITAL DIAGNOSTIC MAMMOGRAM WITH TOMOSYNTHESIS LEFT [place] BREAST [email or web address] [id number] Exam Date: 08/05/2024 12:59 PM Clinical Indication: [...] FINDING(S) Today, I spent 2-3 minutes in [id number] discussion with the patient about the finding(s), impression(s), and recommendation(s). I answered her questions, and she understands today's imaging results. Ordered By: JOHAN LUJAN Interpreted By: Yehuda Patino MD, 08/05/2024 2:01 PM us Johan Lujan MD MAMMO Final Result * US BREAST LT [place] (08/05/2024 1:41 PM CDT) Anatomical Region Laterality Modality Breast Left Ultrasound, Radi ographic Imaging 08/05/2024 2:01 PM CDT Narrative 08/05/2024 2:11 PM CDT [address] [place] [address] Examination(s): LEFT DIGITAL DIAGNOSTIC MAMMOGRAM WITH TOMOSYNTHESIS LEFT [place] BREAST [place] [id number] Exam Date: 08/05/2024 12:59 PM Clinical Indication: [...] FINDING(S) Today, I spent 2-3 minutes in [id number] discussion with the patient about the finding(s), impression(s), and recommendation(s). I answered her questions, and she understands today's imaging results. Ordered By: JOHAN LUJAN Interpreted By: Yehuda Patino MD, 08/05/2024 2:01 PM Johan Lujan MD ULTRASOUND Final Result from Last 3 Months Insurance MEDICAID MEDICARE Care Teams Bank Worker Relationship Specialty Start Date End Date North Harper DO [address] [place] [address] PCP - General FAMILY PRACTICE 01/06/22
--- OUTSIDE RECORDS SUMMARY | 2024-10-05 15:31 | XMS_ITS | Encounter Summary ---
Author Organization [facility] Address [address] [place] [id number] Care Team Providers Care Glass Cutting Machine Feeder Name Role Phone North Harper DO Primary Care Provider [phone] Encounter Details Date Type Department Care Team (Late st Contact Info) Description 09/06/2018 Abstract [facility] CONVERSION [address] [place] [address] , Generic Conversion, Social History Tobacco Use Types Packs/Day Years Used Date Smoking Tobacco: Never Comments Unknown Sex and Gender Information Value Date Recorded Sex Assigned at Female 05/06/2024 1:56 PM GENERAL PASSENGER AGENT Legal Sex Female 8:47 PM CDT Gender Identity Not on file Sexual Orientation Not on file documented as of this encounter Plan of Treatment Not on file documented as of this encounter Visit Diagnoses Not on filedocumented in this encounter Care Teams Glass Cutting Machine Feeder Relationship Specialty Start Date End Date North Harper DO [address] [place] [address] PCP - General FAMILY PRACTICE 01/06/22 documented as of this encounter
[2024-10-05 15:55] LABS: Hematocrit 38.9 % (35.0-49.0); Hemoglobin 12.6 g/dL (12.0-15.0); Immature Granulocyte Percent A 0.1 % (0.0-0.0); Lymphocytes Absolute Auto 2.30 K/mm3 (1.10-4.50); Mean Corpuscular HGB Conc 32.4 g/dL (32-36); Mean Corpuscular Hemoglobin 31.2 pg (27.0-31.0); Mean Corpuscular Volume 96.3 fL (78.0-102.0); Nucleated Red Blood Cells Absolute Auto 0.00 K/mm3 (0.00-0.00); Nucleated Red Blood Cells Perc 0.0 % (0-0.0); Platelet Count Result 253 K/mm3 (150-420); Red Blood Count 4.04 M/mm3 (4.20-5.40); White Blood Count 7.5 K/mm3 (4.8-10.8)
[2024-10-05 16:28] LABS: Alanine Aminotransferase 33 U/L (6-35); Albumin Level 4.0 g/dL (3.5-5.1); Alkaline Phosphatase 100 U/L (38-126); Anion Gap 2 mmol/L (4-12); Aspartate Amino Transferase 44 U/L (14-36); Bilirubin,Total 0.3 mg/dL (0.2-1.3); Blood Urea Nitrogen 13 mg/dL (7-17); Calcium 9.0 mg/dL (8.4-10.2); Carbon Dioxide 28 mmol/L (22-30); Chloride 107 mmol/L (98-107); Estimated CRCL calculation 108 ml/min; Estimated Glomerular Filt Rate > 60; Glucose 111 mg/dL (65-110); Osmolality Calculated 285 mOsm/kg (285-295); Potassium 4.0 mmol/L (3.4-5.0); Sodium 137 mmol/L (137-145); Total Protein 7.1 g/dL (6.3-8.2)
[2024-10-05 16:33] LABS: Influenza A QL RT-PCR Negative (Negative); Influenza B QL RT-PCR Negative (Negative); RSV RNA, RT-PCR Negative (Negative); SARS-CoV-2 RNA PCR Negative (Negative)
--- NOTE | 2024-10-05 16:34 | ED_ITS ---
HPI - Chest Pain General Chief Complaint: Chest Pain Stated Complaint: chest pain Time Seen by Provider: 10/05/24 14:54 Source: patient Mode of arrival: ambulatory Limitations: no limitations History of Present Illness HPI narrative: patient with some is a 59-year-old with history of COPD presents with chest congestion with no shortness of breath does have some mild coarse breath sounds with no fever chills no chest pain no nausea vomiting no radiation of her pain no abdominal pain no flank pain. MD complaint: chest discomfort ( Chest congestion) Onset (ago): day(s) Related Data Home Medications ?Medication ?Instructions ?Recorded ?Confirmed ?Last Taken ?Type Equate Gas And Bloating 2 tab-cap PO QACDINNER PRN Diarrhea 12/06/21 04/19/23 12/11/21 History Tylenol 1,000 mg PO BID 12/06/21 04/19/23 12/11/21 History melatonin 10 mg tablet 10 mg PO HS PRN Insomnia 12/06/21 04/19/23 Unknown History simethicone 125 mg capsule (Gas 250 mg PO QID 12/06/21 04/19/23 12/11/21 History Relief (simethicone)) trazodone 50 mg tablet 100 mg PO HS 12/06/21 04/19/23 Unknown History mirtazapine 7.5 mg tablet 7.5 mg PO DAILY 04/19/23 04/19/23 Unknown History Allergies Allergy/AdvReac Type Severity Reaction Status Date / Time No Known Allergies Allergy Verified 10/05/24 14:59 Review of Systems 2 Review of Systems: All systems reviewed & are unremarkable except as noted in HPI and below PMFSH Past Medical History Medical History Nausea & vomiting Marijuana smoker Irritable bowel syndrome with diarrhea Prediabetes Myofascial pain syndrome Neuropathy Bloating Gastritis Encounter for screening mammogram for malignant neoplasm of breast Obesity, Class II, BMI 35-39.9 Herpes simplex virus (HSV) infection Nicotine dependence Hypertension Hyperlipidemia History of pulmonary embolism GERD without esophagitis DELMER (generalized anxiety disorder) Surgical History Surgical History History of hysterectomy History of cholecystectomy Family History Family History Mother Family history of type 2 diabetes mellitus Father Hypertension Social History Social History Smoking packs per day: 1 Smoking cigarettes per day: 20.0 Years smoked: 40 Smoking pack-years: 40.00 Smoking status: Current every day smoker Tobacco type: cigarettes Alcohol intake: current Substance use: current Substance use type: marijuana Other substance usage details: DAILY Living arrangements: with family Gender identity (if verbalized by the patient): Female Spiritual care concerns: No Exam 2 Const: General: cooperative, healthy appearing, comfortable, no acute distress and well developed HENMT: Head: normal to inspection Face/Nose/Sinus: Normal external nose present Face and sinus: normal facial exam and sinuses nontender Chest: Chest palpation & inspection: normal inspection of the chest and normal palpation of entire chest wall Resp: Effort & Inspection: normal respiratory effort and able to speak in complete sentences Auscultation: clear to auscultation bilaterally Cardio: Jugular venous distension: no JVD Palpation: normal PMI Rate: r egular rate Rhythm: regular rhythm Heart sounds: S1 normal heart sound present and S2 normal heart sound present GI: Inspection: normal to inspection Percussion: Yes normal to percussion Auscultation: normal bowel sounds : General: Yes bimanual renal exam normal bilaterally Neuro: General: oriented to person, oriented to place and oriented to time Course Course Emergency Course: EKG within normal limits normal sinus rhythm, chest x-ray showed no acute cardiopulmonary abnormality blood work with no abnormalities patient afebrile O2 sats 94% air will start antibiotics for upper respiratory tract infection on outpatient basis. Vital Signs Vital signs: Vital Signs Temperature 35.7 C L 10/05/24 14:51 Pulse Rate 83 10/05/24 14:51 Respiratory Rate 13 10/05/24 14:51 Blood Pressure 144/78 H 10/05/24 14:51 Pulse Oximetry 96 10/05/24 14:51 Oxygen Delivery Room Air 10/05/24 14:51 Temperature 35.7 C L 10/05/24 14:51 Pulse Rate 76 10/05/24 15:55 Respiratory Rate 19 10/05/24 15:46 Blood Pressure 131/78 10/05/24 15:46 Pulse Oximetry 94 10/05/24 15:46 Oxygen Delivery Room Air 10/05/24 14:55 MDM - Chest Pain Lab Data 10/05/24 15:47 10/05/24 15:47 Labs: Lab Results 10/05/24 Range/Units 15:47 WBC 7.5 (4.8-10.8) K/mm3 RBC 4.04 L (4.20-5.40) M/mm3 Hgb 12.6 (12.0-15.0) g/dL Hct 38.9 (35.0-49.0) % MCV 96.3 (78.0-102.0) fL MCH 31.2 H (27.0-31.0) pg MCHC 32.4 (32-36) g/dL RDW 13.3 (11.6-14.4) % Plt Count 253 (150-420) K/mm3 MPV 9.3 (9.2-11.8) fl Immature Gran % (Auto) 0.1 H (0.0-0.0) % Neut % (Auto) 60.2 (50.0-70.0) % Lymph % (Auto) 30.7 (18.0-42.0) % [place] % (Auto) 7.2 (2.0-11.0) % Eos % (Auto) 1.1 (1.0-6.0) % Baso % (Auto) 0.7 (0.0-1.0) % Lymph # (Auto) 2.30 (1.10-4.50) K/mm3 [place] # (Auto) 0.54 (0.10-0.90) K/mm3 Eos # (Auto) 0.08 (0.02-0.50) K/mm3 Baso # (Auto) 0.05 (0.00-0.10) K/mm3 Abs Immat Gran (auto) 0.01 H (0.00-0.00) K/mm3 Absolute Neuts (auto) 4.50 (1.70-7.20) K/mm3 Absolute Nucleated RBC 0.00 (0.00-0.00) K/mm3 Nucleated RBC % 0.0 (0-0.0) % Sodium 137 (137-145) mmol/L Potassium 4.0 (3.4-5.0) mmol/L Chloride 107 (98-107) mmol/L Carbon Dioxide 28 (22-30) mmol/L Anion Gap 2 L (4-12) mmol/L BUN 13 (7-17) mg/dL Creatinine 0.64 L (0.7-1.0) mg/dL Estim Creat Clear Calc 108 ml/min Estimated GFR > 60 (59 - ) Glucose 111 H (65-110) mg/dL Calculated Osmolality 285 (285-295) mOsm/kg Calcium 9.0 (8.4-10.2) mg/dL Total Bilirubin 0.3 (0.2-1.3) mg/dL AST 44 H (14-36) U/L ALT 33 (6-35) U/L Alkaline Phosphatase 100 (38-126) U/L Total Protein 7.1 (6.3-8.2) g/dL Albumin 4.0 (3.5-5.1) g/dL Influenza A (RT-PCR) Negative (Negative) Influenza B (RT-PCR) Negative (Negative) RSV (RT-PCR) Negative (Negative) SARS-CoV-2 RNA (RT-PCR) Negative (Negative) Critical Care Time Critical Care Time Critical Care Time: No Discharge Plan Discharge Clinical Impression: Acute upper respiratory infection Patient Disposition: Home Condition: Stable Instructions: Antibiotic Form, Upper Respiratory Infection (ED) Patient Language: Nepali Prescriptions: No Action mirtazapine 7.5 mg tablet 7.5 mg PO DAILY trazodone 50 mg tablet 100 mg PO HS simethicone [Gas Relief (simethicone)] 125 mg Capsule 250 mg PO QID melatonin 10 mg Tablet 10 mg PO HS PRN (Reason: Insomnia) Equate Gas And Bloating 2 tab-cap PO QACDINNER PRN (Reason: Diarrhea) Patient Comments: takes if high dairy content in meal Tylenol 1,000 mg PO BID hydroxyzine pamoate 50 mg capsule 50 mg PO TID PRN (Reason: anxiety) Qty: 90 1RF potassium chloride 20 mEq tablet extended release See Rx Instructions .ROUTE .COMPLEX Qty: 360 1RF Dose Instruction: TAKE 2 TABLETS(40MEQ) BY MOUTH TWICE DAILY Patient Comments: takes 1 tab 4 times a day Rx Instructions: TAKE 2 TABLETS(40MEQ) BY MOUTH TWICE DAILY gabapentin 600 mg tablet See Rx Instructions .ROUTE .COMPLEX Qty: 360 1RF Dose Instruction: TAKE 1 TABLET BY MOUTH FOUR TIMES DAILY Rx Instructions: TAKE 1 TABLET BY MOUTH FOUR TIMES DAILY sucralfate 1 gram tablet 1 g PO QID 90 Days Qty: 360 1RF hydrocodone-acetaminophen 5-325 mg tablet 1 tablet PO Q8H PRN (Reason: pain) Qty: 20 0RF cyclobenzaprine 10 mg tablet 10 mg PO TID Qty: 30 0RF warfarin 6 mg tablet 6 mg PO DAILY Qty: 90 0RF omeprazole 40 mg capsule,delayed release(DR/EC) See Rx Instructions .ROUTE .COMPLEX Qty: 90 0RF Dose Instruction: TAKE 1 CAPSULE BY MOUTH DAILY Rx Instructions: TAKE 1 CAPSULE BY MOUTH DAILY warfarin 7.5 mg tablet 7.5 mg PO DAILY Qty: 30 3RF Patient Comments: currently not using losartan-hydrochlorothiazide 50-12.5 mg tablet See Rx Instructions .ROUTE .COMPLEX Qty: 90 0RF Dose Instruction: TAKE 1 TABLET BY MOUTH DAILY Rx Instructions: TAKE 1 TABLET BY MOUTH DAILY atorvastatin 80 mg tablet 80 mg PO DAILY Qty: 90 0RF Follow-up/Referrals: Pacheco,Sarah Sharp APRN [Primary Care Provider] -
== END 2024-10-05 16:57 | disposition home or self-care (01) ==
PROVIDERS: Emergency Provider Emergency Medicine; PCP Nurse Practitioner Family
DX: J06.9 Acute upper respiratory infection, unspecified (principal); J44.9 Chronic obstructive pulmonary disease, unspecified; I10 Essential (primary) hypertension; E78.5 Hyperlipidemia, unspecified; F17.210 Nicotine dependence, cigarettes, uncomplicated; Z20.822 Contact with and (suspected) exposure to COVID-19
CPT/HCPCS: 36415; 71045; 80053; 85025; 87637; 93005; 99284